=== PATIENT | male | born 1985 | race Caucasian/White ===

== ENCOUNTER 2023-02-07 18:37 | Observation (INO) | payer OTHER, SELFPAY ==
[2023-02-07] VITALS (13 sets, daily range): BP systolic 105–140; BP diastolic 64–98; PULSE 64–84; RESP 16–18; TEMP 36.9; O2SAT 94–100; BMI 24.4
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
[2023-02-07] MEDS: HYDROMORPHONE 1 MG INJ IV ×2 (18:43→19:57)
[2023-02-07 18:46] LABS: Add Manual Diff / Slide Review NO; Basophils Absolute Auto 100 /uL (0-100); Basophils Percent Auto 0.7 % (0-2); Eosinophils Absolute Auto 100 /uL (0-450); Eosinophils Percent Auto 1.3 % (2-4); Hematocrit 35.8 % (41-53); Hemoglobin 11.9 g/dL (13.5-17.5); Lymphocytes Absolute Auto 2800 /uL (1100-4500); Lymphocytes Percent Auto 35.3 % (25-40); Mean Corpuscular HGB Conc 33.3 % (30-36); Mean Corpuscular Hemoglobin 30.5 PG (26-34); Mean Corpuscular Volume 91.5 fL (80-100); Monocytes Absolute Auto 600 /uL (0-900); Monocytes Percent Auto 7.9 % (3-14); Neutrophils Absolute Auto 4300 /uL (1500-7000); Neutrophils Percent Auto 54.8 % (50-75); Platelet Count 218 X10^3/uL (150-400); Red Blood Cell Count 3.91 X10^6/uL (4.5-5.9); Red Cell Distribution Width 12.9 % (11.6-14.8); White Blood Cell Count 7.9 X10^3/uL (4.5-11.0)
--- NOTE | 2023-02-07 18:55 | PC.NURSE ---
in to talk w/ pt. Pt agreed to visit.
[2023-02-07 19:03] LABS: Alanine Aminotransferase 72 IU/L (<50); Albumin 4.4 g/dL (3.5-5.0); Albumin Globulin Ratio 1.3 (1.0-2.8); Alkaline Phosphatase 65 U/L (38-126); Aspartate Aminotransferase 91 IU/L (17-59); BUN Creatinine Ratio 9.3 (6-22); Bilirubin Total 0.5 mg/dL (0.2-1.3); Blood Urea Nitrogen 9 mg/dL (9-20); Calcium 8.8 mg/dL (8.4-10.2); Carbon Dioxide 20 mmol/L (22-32); Chloride 100 mmol/L (98-107); Estimated Glomerular Filt Rate > 60 mL/min (>60); Globulin 3.3 g/dL (1.7-4.1); Glucose 91 mg/dL (70-100); HEMOLYSIS < 15 (0-50); Lipase 509 U/L (23-300); Potassium 3.5 mmol/L (3.4-5.1); Sodium 132 mmol/L (137-145); Total Protein 7.7 g/dL (6.3-8.2)
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
[2023-02-07] MEDS: HYDROMORPHONE 0.5 MG INJ IV (23:01)
[2023-02-07] MEDS: DEXTROSE 5%-0.45% NS 1,000 ML 100 ML IV (23:33)
[2023-02-07] MEDS: ACETAMINOPHEN 325 MG TABLET 650 MG PO (23:55)
[2023-02-07] MEDS: HEPARIN 5,000 UNIT/ML VIAL 5000 UNIT SUBCUT (23:55)
[2023-02-07] MEDS: OXYCODONE IR 5 MG TABLET 10 MG PO (23:56)
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
[2023-02-08 00:42] VITALS: BMI 24.3
[2023-02-08] MEDS: OXYCODONE IR 5 MG TABLET 10 MG PO ×3 (03:13→10:25)
[2023-02-08 03:23] VITALS: BP 117/70; PULSE 52; RESP 16; TEMP 36.7; O2SAT 98
[2023-02-08 07:22] LABS: Add Manual Diff / Slide Review NO; Basophils Absolute Auto 0 /uL (0-100); Basophils Percent Auto 0.6 % (0-2); Eosinophils Absolute Auto 0 /uL (0-450); Eosinophils Percent Auto 0.1 % (2-4); Hemoglobin 12.3 g/dL (13.5-17.5); Lymphocytes Absolute Auto 1500 /uL (1100-4500); Mean Corpuscular HGB Conc 34.2 % (30-36); Mean Corpuscular Hemoglobin 30.9 PG (26-34); Mean Corpuscular Volume 90.5 fL (80-100); Monocytes Absolute Auto 800 /uL (0-900); Monocytes Percent Auto 11.7 % (3-14); Neutrophils Absolute Auto 4600 /uL (1500-7000); Neutrophils Percent Auto 66.6 % (50-75); Platelet Count 182 X10^3/uL (150-400); Red Blood Cell Count 3.97 X10^6/uL (4.5-5.9); Red Cell Distribution Width 12.9 % (11.6-14.8); White Blood Cell Count 6.9 X10^3/uL (4.5-11.0)
[2023-02-08 07:32] LABS: BUN Creatinine Ratio 9.8 (6-22); Blood Urea Nitrogen 8 mg/dL (9-20); Calcium 8.6 mg/dL (8.4-10.2); Carbon Dioxide 25 mmol/L (22-32); Chloride 102 mmol/L (98-107); Estimated Glomerular Filt Rate > 60 mL/min (>60); Glucose 171 mg/dL (70-100); HEMOLYSIS < 15 (0-50); Potassium 3.6 mmol/L (3.4-5.1); Sodium 134 mmol/L (137-145)
[2023-02-08 08:15] VITALS: BP 118/75; PULSE 61; RESP 10; TEMP 36; O2SAT 99
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
[2023-02-08] MEDS: methocarbamoL 500 MG TABLET 750 MG PO (09:05)
[2023-02-08] MEDS: CELECOXIB 200 MG CAPSULE PO (09:05)
[2023-02-08] MEDS: GABAPENTIN 400 MG CAPSULE PO (09:08)
[2023-02-08] MEDS: LIDOCAINE PATCH 1 EACH ADH..PATCH TOP (09:08)
[2023-02-08] MEDS: DEXTROSE 5%-0.45% NS 1,000 ML 100 ML IV (09:41)
[2023-02-08] MEDS: ACETAMINOPHEN 325 MG TABLET 650 MG PO (10:25)
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
== END 2023-02-08 13:07 | disposition home or self-care (01) ==
LOC: ED 21:47 → AC 22:58
PROVIDERS: Admitting Provider Surgery; Emergency Provider Emergency Medicine; Visit Provider Surgery
DX: S42.112A Displaced fracture of body of scapula, left shoulder, initial encounter for closed fracture (principal); V28.09XA Other motorcycle driver injured in noncollision transport accident in nontraffic accident, initial encounter
CPT/HCPCS: 71045; 71250; 72125; 72170; 73020; 73200; 80048; 80053; 83690; 85025; 96361; 96374; 96376; 97162; 97530; 99231; 99284; G0378; J1170; J1644

== ENCOUNTER 2024-07-19 09:46 | Emergency (ER) | payer OTHER, SELFPAY ==
[2024-07-19] VITALS (9 sets, daily range): BP systolic 99–150; BP diastolic 57–90; PULSE 52–77; RESP 20; TEMP 36.5; O2SAT 97–100; BMI 23.1
--- NOTE | 2024-07-19 09:53 | ED_ITS ---
HPI - Extremity Injury (Upper) General Chief Complaint: Extremity Injury, Upper Stated Complaint: Crushed his right hand Time Seen by Provider: 07/19/24 09:53 History of Present Illness HPI narrative: 39-year-old male with chronic pain syndrome, right-handed, was working today 929 and caught his right middle and thumb fingers between 2 large logs, with crush injury to those fingers and lacerations. No injury to the right thumb or index or pinky finger. Denies pain to the right hand, wrist, forearm, elbow, arm, shoulder. Denies pain or injury to the left upper extremity, and to the lower extremities. Denies any pain or injury to the head, face, neck, upper back, mid lower back, abdomen or pelvis. He has not sure of the date of his last tetanus shot. No known drug allergies. Related Data Home Medications Medication Instructions Recorded Confirmed buprenorphine 8 mg-naloxone 2 mg 10 mg sublingual 3XD 02/07/23 02/07/23 sublingual film Previous Rx's Medication Instructions Recorded acetaminophen 325 mg tablet 650 mg (2 x 325 mg) PO Q6H #60 tabs 02/08/23 celecoxib 200 mg capsule (Celebrex) 200 mg PO BID #20 caps 02/08/23 lidocaine 5 % topical patch 1 ea topical DAILY #4 ea 02/08/23 methocarbamol 500 mg tablet 750 mg (1.5 x 500 mg) PO TID PRN 02/08/23 Muscle Spasm #20 tabs oxycodone 5 mg tablet 10 mg (2 x 5 mg) PO Q3H PRN Pain, 02/08/23 Moderate (4-6) #20 tabs cephalexin 500 mg capsule 500 mg PO QID 7 days #28 caps 07/19/24 hydrocodone 5 mg-acetaminophen 325 1 tab PO Q6H PRN pain #14 tabs 07/19/24 mg tablet Allergies Allergy/AdvReac Type Severity Reaction Status Date / Time No Known Drug Allergies Allergy Verified 02/07/23 18:55 Patient History Social History household members: none Exam Narrative Exam Narrative: GENERAL: Well-developed patient, in mild distress. HEAD: Atraumatic. Normocephalic. EYES: Pupils equal round and reactive. Extraocular motions intact. No scleral icterus. No injection or drainage. ENT: Nose without bleeding, purulent drainage. Throat without erythema, tonsillar hypertrophy or exudate. Airway patent. NECK: Trachea midline. Non tender CARDIOVASCULAR: Regular rate and rhythm without murmurs, gallops, or rubs. RESPIRATORY: Clear to auscultation. Breath sounds equal bilaterally. No wheezes, rales, or rhonchi. GASTROINTESTINAL: Abdomen soft, non-tender, nondistended. EXTREMITIES: Laceration to the right middle finger horizontal superficial mid finger, can actively extend, no visible tendon or joint structures or foreign bodies, proximally 1 0.5 cm length. Lacerations to the right 4th finger longitudinal radial and lateral aspects up to the cuticle region, with subungual hematoma present, the nail does seem quite adherent and not loose and is tucked under the cuticle ridge over the cuticle at this time, radial laceration proximally 3 cm, ulnar laceration 2.5 cm. No visible foreign body or joint structures or tendon structures, he seemed to be able to fully extend and retract his finger. Had some numbness to the distal fingertip prior to digital block noted. BACK: Nontender without deformity or crepitance. No flank tenderness. NEURO: AOx3. Motor functions grossly nonfocal SKIN: No rash or erythema of visible areas Initial Vital Signs Initial Vital Signs: Vital Signs Temperature 97.7 F 07/19/24 09:54 Pulse Rate 77 07/19/24 09:54 Respiratory Rate 20 07/19/24 09:54 Blood Pressure 150/90 H 07/19/24 09:54 Pulse Oximetry 100 07/19/24 09:54 Oxygen Delivery Method Room Air 07/19/24 09:54 Procedures Laceration Repair Laceration 1: Time of procedure: 12:01 Site: hand (Right 4th finger) Side (If applicable): right Size (cm): 3 Description: linear Depth: simple, single layer Local Anesthetic: bupivacaine 0.5% (Digital block without epi) Amount of anesthesia used (mL): 4 Skin layer closed with: nylon Skin layer suture size: 4-0 Number of sutures: 8 Technique: simple, interrupted Laceration 2: Time of procedure: 12:02 Site: other (Right 4th ring finger) Side (If applicable): right Size (cm): 2.5 Description: linear Depth: simple, single layer Local Anesthetic: bupivacaine 0.5% (Digital block tolerated well, total 4 cc) Skin layer closed with: nylon Skin layer suture size: 4-0 Number of sutures: 6 Technique: simple, interrupted Laceration 3: Time of procedure: 12:04 Site: hand (Right 3rd finger volar aspect, no visible tendon structures, good flexion-extension) Side (If applicable): right Size (cm): 1.5 Description: linear Depth: simple, single layer Local Anesthetic: bupivacaine 0.5% (Digital block with bupivacaine total 4 cc) Amount of anesthesia used (mL): 4 Skin layer suture size: 4-0 Number of sutures: 2 Technique: simple, interrupted Misc Procedure Name of Procedure: Trephination right 4th nailbed, after digital block, single pass with electrocautery, tolerated well Side (if applicable): right Time out performed: No Complications: none Course Orders Ordered: Discontinued Medications Hydrocodone Bitart/Acetaminophen (Hydrocodone/Acet 5/325 Tablet) 1 tab PO NOW ONE Stop: 07/19/24 11:48 Last Admin: 07/19/24 12:28 Dose: 1 tab Documented By: KIM Bacitracin (Bacitracin Oint 0.9 Gm Pckt) 3 applic TOP NOW ONE Stop: 07/19/24 11:43 Last Admin: 07/19/24 12:28 Dose: 3 applic Documented By: KIM Bupivacaine HCl (Bupivacaine 0.5% (Pf) 10 Ml Vial) 5 ml SUBCUT NOW ONE Stop: 07/19/24 10:14 Last Admin: 07/19/24 10:20 Dose: 5 ml Documented By: SASHA Diphtheria/Tetanus/Acell Pertussis (Tet,Diph,Pertuss(Acell),Vac/Pf 0.5 Ml Syringe) 0.5 ml IM .ONCE ONE Stop: 07/19/24 11:48 Last Admin: 07/19/24 12:28 Dose: 0.5 ml Documented By: KIM Hydromorphone HCl (Hydromorphone 1 Mg Inj) 1 mg IV NOW ONE Stop: 07/19/24 10:06 Last Admin: 07/19/24 10:10 Dose: 1 mg Documented By: KIM Ceftriaxone Sodium 1,000 mg/ (Sodium Chloride) 100 mls @ 200 mls/hr IV NOW ONE Stop: 07/19/24 10:06 Last Infusion: 07/19/24 10:53 Dose: Infused Documented By: Admin: 07/19/24 10:10 Dose: 200 mls/hr Documented By: KIM Ondansetron HCl (Ondansetron 4 Mg/2 Ml Inj) 4 mg IV NOW ONE Stop: 07/19/24 10:06 Last Admin: 07/19/24 10:10 Dose: 4 mg Documented By: KIM Vital Signs Vital signs: Vital Signs - 8 hr 07/19/24 11:30 07/19/24 11:30 07/19/24 12:00 Pulse Rate 67 72 Blood Pressure 104/61 Pulse Oximetry 98 100 07/19/24 12:30 07/19/24 12:30 Pulse Rate 71 Blood Pressure 131/74 Pulse Oximetry 99 MDM - Extremity Injury (Upper) Imaging Data Extremity x-ray #1: Radiologist's Impression: [address] [address] XRay Report Signed Patient: Nabil Ballard MR#: [id number] : 1985 Acct:[id number] Age/Sex: 39 / M Date of Service: 07/19/24 Loc: ED Accession Number: [id number] Procedure: XR hand RT min 3V Ordering Provider: Mauricio Ellison MD PROCEDURE: XR HAND RT MIN 3V INDICATIONS: crushed/lac between tree logs TECHNIQUE: 3 views of the hand(s) acquired. COMPARISON: None. FINDINGS: Bones: No fractures or dislocations. Carpal bones are normally aligned. No suspicious bony lesions. Soft tissues: 4th digit distal phalanx traumatic injury. Subtle calcific density near the distal nail of the 4th digit best seen on lateral projection. No suspicious soft tissue calcifications. IMPRESSION: No definite fracture. Traumatic injury to the 4th digit distal phalanx. Subtle density near the distal aspect of the 4th digit nail. Difficult to exclude small foreign body. Dictated by: Abran Mathias M.D. on 07/19/2024 at 10:55 Approved by: Abran Mathias M.D. on 07/19/2024 at 10:58 [facility] Narrative Medical decision making narrative: 39-year-old right-handed male with history of chronic pain for which he takes Suboxone, had crush injury and lacerations to his right middle and ring fingers, caught between logs while wearing gloves and he tried to withdrawal. No punctures known to the gloves. Lacerations to the 4th finger more prominent, quite mangled, also with subungual hematoma of the nail although the nail is tucked under the cuticle bridge for now, and not obviously loose. Trephination through finger 4th fingernail tolerated well after digital block. Laceration repairs of the 4th finger, 14 sutures, flap like laceration, patient informed this is quite injured, might not take, could slough off, could require surgical debridement, grafting, even potential amputation. X-ray showed no obvious fracture but maybe some retained small foreign body. It is certainly possible a small foreign body could be present, none was visible after copious irrigation after digital block anesthesia. Finger 3rd laceration small, simple repair, see separate procedure note. Fingers irrigated, photos pre and post repair, antibiotic ointment applied, Xeroform, bulky finger dressing wrap. Oral hydrocodone given. Case discussed with Orthopedic surgery Dr. Lopez, he can try to be seen in their office tomorrow, otherwise recommend wound check here tomorrow. IV ceftriaxone given in the emergency department, prescription for cephalexin antibiotic sent to his pharmacy. Prescription sent for hydrocodone sent to his pharmacy. Suboxone on his medication list, might need to be held for the next few days until this whole event is resolved. Discharged home with family. Follow up with Orthopedic surgery tomorrow. Contact Orthopedic Clinic information provided on discharge. Discharge Plan Departure Patient Disposition: Home Clinical Impression: Laceration of finger, Contusion of finger, Subungual hematoma Activity Restrictions/Additional Instructions: Crush laceration injury to the right 3rd and 4th fingers while wearing gloves, as it was trapped between 2 logs and pulled out. Lacerations predominantly to the right 4th finger, that required complex repair with total 14 sutures. This flap is at risk of not taking, it is certainly possible that the flap can degrade and become infected and might even need surgical removal, skin grafting, or even potential amputation. However the bony structures are covered at this time with tissue. On x-ray there is no obvious fracture but there was some concern about possible tiny foreign body at the tip of the 4th finger, this was not visible after extensive irrigation, it is certainly possible there could be some retained foreign body by the mechanism described. Antibiotics initiated in the emergency department, further antibiotics to take at home. Advised follow up with Orthopedic surgery in the next couple of days. Contact information provided for the office of Dr. Lopez. There was a blood collection underneath the 4th finger nailbed, which can be quite painful, after digital block there was additionally a small electrocautery hole made through the nail so that it can drain and relief pressure from h ematoma and/or any purulence/pus if it should become infected. Chronic pain, for which she had been prescribed Suboxone, unfortunately this will inhibit your hydrocodone although it probably will be important to be using the hydrocodone in the next few days, as you have a pretty significant hand/finger injury. Wound check advised tomorrow and office of Dr. Lopez. Or here in the emergency department if you can not be seen there tomorrow for wound Prescriptions: New cephalexin 500 mg capsule 500 mg PO QID 7 Days Qty: 28 0RF hydrocodone-acetaminophen 5-325 mg tablet 1 tab PO Q6H PRN (Reason: pain) Qty: 14 0RF No Action buprenorphine-naloxone 8-2 mg film 10 mg sublingual 3XD celecoxib [Celebrex] 200 mg Capsule 200 mg PO BID Qty: 20 0RF methocarbamol 500 mg Tablet 750 mg PO TID PRN (Reason: Muscle Spasm) Qty: 20 0RF acetaminophen 325 mg Tablet 650 mg PO Q6H Qty: 60 0RF lidocaine 5 % Adhesive Patch,Medicated 1 ea topical DAILY Qty: 4 0RF oxycodone 5 mg Tablet 10 mg PO Q3H PRN (Reason: Pain, Moderate (4-6)) Qty: 20 0RF Referrals: Ephraim Lopez MD [Physician] - Stand Alone Forms: Patient Portal/API/Survey
--- NOTE | 2024-07-19 09:56 | DI.RAD.S_ITS ---
PROCEDURE: XR HAND RT MIN 3V INDICATIONS: crushed/lac between tree logs TECHNIQUE: 3 views of the hand(s) acquired. COMPARISON: None. FINDINGS: Bones: No fractures or dislocations. Carpal bones are normally aligned. No suspicious bony lesions. Soft tissues: 4th digit distal phalanx traumatic injury. Subtle calcific density near the distal nail of the 4th digit best seen on lateral projection. No suspicious soft tissue calcifications. IMPRESSION: No definite fracture. Traumatic injury to the 4th digit distal phalanx. Subtle density near the distal aspect of the 4th digit nail. Difficult to exclude small foreign body. Dictated by: Abran Mathias M.D. on 07/19/2024 at 10:55 Approved by: Abran Mathias M.D. on 07/19/2024 at 10:58
[2024-07-19] MEDS: HYDROMORPHONE 1 MG INJ IV (10:10)
[2024-07-19] MEDS: cefTRIAXone 1,000 MG in SODIUM CHLORIDE 0.9% 100 ML 200 MG IV (10:10)
[2024-07-19] MEDS: ONDANSETRON 4 MG/2 ML INJ IV (10:10)
[2024-07-19] MEDS: BUPIVACAINE 0.5% (PF) 10 ML VIAL 5 ML SUBCUT (10:20)
[2024-07-19] MEDS: HYDROCODONE/ACET 5/325 TABLET 1 TAB PO (12:28)
[2024-07-19] MEDS: TET,DIPH,PERTUSS(ACELL),VAC/PF 0.5 ML SYRINGE IM (12:28)
[2024-07-19] MEDS: BACITRACIN OINT 0.9 GM PCKT 3 APPLIC TOP (12:28)
== END 2024-07-19 12:43 | disposition home or self-care (01) ==
PROVIDERS: Emergency Provider Emergency Medicine
DX: S61.314A Laceration without foreign body of right ring finger with damage to nail, initial encounter (principal); W23.0XXA Caught, crushed, jammed, or pinched between moving objects, initial encounter; Z23 Encounter for immunization
CPT/HCPCS: 10140; 12002; 64450; 73130; 90471; 96365; 96375; 99284; 90715; J0696; J1171; J2405

== ENCOUNTER 2024-07-20 09:52 | Emergency (ER) | payer OTHER, SELFPAY ==
[2024-07-20 10:09] VITALS: BP 143/97; PULSE 89; RESP 14; TEMP 36.3; O2SAT 99; BMI 23.1
--- NOTE | 2024-07-20 10:17 | ED_ITS ---
HPI - Recheck/Abnormal Lab/Rx General Chief Complaint: Recheck/Abnormal Lab/Rx Stated Complaint: returning hand injury Time Seen by Provider: 07/20/24 10:17 Source: patient Mode of arrival: Ambulatory History of Present Illness HPI narrative: 39-year-old male here for wound check right hand fingers. Yesterday patient sustained crush injury between 2 trees, lacerations to the right 4th finger more extensive and with subungual hematoma, multiple sutures to repair the left 4th finger, trephination of the nailbed, simple laceration to the adjacent right 3rd finger, no tendon disruptions obvious clinically, case was discussed with [facility] Dr. Lopez for close follow up. Patient unable to get into their orthopedic clinic today, here for wound check. Patient is taking his antibiotics as prescribed. Related Data Home Medications Medication Instructions Recorded Confirmed buprenorphine 8 mg-naloxone 2 mg 10 mg sublingual 3XD 02/07/23 02/07/23 sublingual film Previous Rx's Medication Instructions Recorded acetaminophen 325 mg tablet 650 mg (2 x 325 mg) PO Q6H #60 tabs 02/08/23 celecoxib 200 mg capsule (Celebrex) 200 mg PO BID #20 caps 02/08/23 lidocaine 5 % topical patch 1 ea topical DAILY #4 ea 02/08/23 methocarbamol 500 mg tablet 750 mg (1.5 x 500 mg) PO TID PRN 02/08/23 Muscle Spasm #20 tabs oxycodone 5 mg tablet 10 mg (2 x 5 mg) PO Q3H PRN Pain, 02/08/23 Moderate (4-6) #20 tabs cephalexin 500 mg capsule 500 mg PO QID 7 days #28 caps 07/19/24 hydrocodone 5 mg-acetaminophen 325 1 tab PO Q6H PRN pain #14 tabs 07/19/24 mg tablet Allergies Allergy/AdvReac Type Severity Reaction Status Date / Time No Known Drug Allergies Allergy Verified 07/20/24 10:09 Patient History Social History household members: none Smoking Status: Unknown if ever smoked Smoking Status: Unknown if ever smoked Exam Narrative Exam Narrative: GENERAL: Well-developed patient, in mild distress. HEAD: Atraumatic. Normocephalic. HEENT: No obvious scalp or face injuries, conjugate gaze, no nosebleed or swelling, normal range of motion neck and mandible CARDIOVASCULAR: Regular rate and rhythm without murmurs, gallops, or rubs. RESPIRATORY: Clear to auscultation. Breath sounds equal bilaterally. No wheezes, rales, or rhonchi. GASTROINTESTINAL: Abdomen soft, non-tender, nondistended. EXTREMITIES: No edema or joint tenderness. Right 4rd finger with sutures intact, repaired with 14 stitches yesterday with complex repair, and trephination to the nailbed. No sloughing or blackening, no purulence. Adjacent 3rd finger with sutures intact, also no obvious infection or necrosis changes at this time. NEURO: AOx3. Motor functions grossly nonfocal SKIN: No rash or erythema of visible areas Initial Vital Signs Initial Vital Signs: Vital Signs Temperature 97.3 F L 07/20/24 10:09 Pulse Rate 89 07/20/24 10:09 Respiratory Rate 14 07/20/24 10:09 Blood Pressure 143/97 H 07/20/24 10:09 Pulse Oximetry 99 07/20/24 10:09 Oxygen Delivery Method Room Air 07/20/24 10:09 Course Orders Ordered: Discontinued Medications Bacitracin (Bacitracin Oint 0.9 Gm Pckt) 1 applic TOP NOW ONE Stop: 07/20/24 10:38 Last Admin: 07/20/24 11:22 Dose: 1 applic Documented By: SASHA Vital Signs Vital signs: Vital Signs - 8 hr 07/20/24 10:09 Temperature 97.3 F L Pulse Rate 89 Respiratory Rate 14 Blood Pressure 143/97 H Pulse Oximetry 99 Oxygen Delivery Method Room Air MDM - Recheck/Abnormal Lab/Rx MDM Narrative Medical decision making narrative: 39-year-old male with complex finger laceration yesterday with crush injury, case presented to Orthopedic surgery Dr. Lopez yesterday, who thought patient to be discharged home with follow up in clinic today, however patient unable to get into their clinic he reports, here for wound check. Dressing removed. There is some blanching to the most affected ring finger. Permission to send photos to on-call orthopedic surgery. Case discussed with Orthopedic surgery Dr. Guthrie, photos of appearance wound today and also initial wound from yesterday on hospital phone, sent to his phone for review and further recommendations. Texture apply on hospital phone, Dr. Mina had relayed images to Dr. Lopez, plan is to follow up with him in the next week in clinic. Continue daily dressing changes at home for now. Take antibiotics as prescribed. We discussed return precautions. Discharge Plan Departure Patient Disposition: Home Clinical Impression: Visit for wound check, Laceration of finger Activity Restrictions/Additional Instructions: Complex finger laceration repair yesterday, IV antibiotics given, taking oral cephalexin antibiotic, here for wound check as you were not able to get into the office of Dr. Lopez orthopedic surgery as planned today, some blanching to the wound no necrotic edges, no significant swelling. Pictures of the wound were taken with permission, and sent by hospital phone to orthopedic surgery Dr. Mina on-call, who consulted with Dr. Lopez, plan is for you to continue dressing changes daily at home, wound check in the office of Dr. Lopez in 1 week, continue the oral antibiotics as planned. Home dressing changes for now. Return earlier to this/nearest emergency department for any change worsening sym ptoms or any concerns prior to your orthopedic surgery follow up Prescriptions: No Action buprenorphine-naloxone 8-2 mg film 10 mg sublingual 3XD celecoxib [Celebrex] 200 mg Capsule 200 mg PO BID Qty: 20 0RF methocarbamol 500 mg Tablet 750 mg PO TID PRN (Reason: Muscle Spasm) Qty: 20 0RF acetaminophen 325 mg Tablet 650 mg PO Q6H Qty: 60 0RF lidocaine 5 % Adhesive Patch,Medicated 1 ea topical DAILY Qty: 4 0RF oxycodone 5 mg Tablet 10 mg PO Q3H PRN (Reason: Pain, Moderate (4-6)) Qty: 20 0RF cephalexin 500 mg capsule 500 mg PO QID 7 Days Qty: 28 0RF hydrocodone-acetaminophen 5-325 mg tablet 1 tab PO Q6H PRN (Reason: pain) Qty: 14 0RF Referrals: Miscellaneous,Doctor, MD [Primary Care Provider] - Randal Guthrie MD [Physician] - Ephraim Lopez MD [Physician] - Stand Alone Forms: Patient Portal/API/Survey
[2024-07-20] MEDS: BACITRACIN OINT 0.9 GM PCKT 1 APPLIC TOP (11:22)
--- NOTE | 2024-07-20 11:36 | PC.NURSE ---
xeroform applied,anh and coban applied.
== END 2024-07-20 11:26 | disposition home or self-care (01) ==
PROVIDERS: Emergency Provider Emergency Medicine
DX: Z48.00 Encounter for change or removal of nonsurgical wound dressing (principal); S61.314A Laceration without foreign body of right ring finger with damage to nail, initial encounter; W23.0XXA Caught, crushed, jammed, or pinched between moving objects, initial encounter
CPT/HCPCS: 99282

== ENCOUNTER 2024-07-24 18:08 | Emergency (ER) | payer OTHER, SELFPAY ==
[2024-07-24 18:16] VITALS: BP 133/88; PULSE 99; RESP 16; TEMP 36.9; O2SAT 97; BMI 23.1
--- NOTE | 2024-07-24 19:42 | PC.NURSE ---
Patient not present in lobby when called for a room. Did not check out with registration.
== END 2024-07-24 19:42 | disposition left against medical advice (07) ==
DX: M79.631 Pain in right forearm (principal)
CPT/HCPCS: 99281

== ENCOUNTER 2024-07-25 08:53 | Emergency (ER) | payer OTHER, SELFPAY ==
[2024-07-25] VITALS (9 sets, daily range): BP systolic 102–132; BP diastolic 65–93; PULSE 60–87; RESP 16–18; TEMP 36.6–37.2; O2SAT 95–99; BMI 24.4
[2024-07-25 09:53] LABS: Add Manual Diff / Slide Review NO; Basophils Absolute Auto 200 /uL (0-100); Basophils Percent Auto 3.1 % (0-2); Eosinophils Absolute Auto 100 /uL (0-450); Eosinophils Percent Auto 1.2 % (2-4); Hemoglobin 12.8 g/dL (13.5-17.5); Lymphocytes Absolute Auto 900 /uL (1100-4500); Lymphocytes Percent Auto 16.8 % (25-40); Mean Corpuscular HGB Conc 33.7 % (30-36); Mean Corpuscular Hemoglobin 36.4 PG (26-34); Mean Corpuscular Volume 107.8 fL (80-100); Monocytes Absolute Auto 600 /uL (0-900); Monocytes Percent Auto 10.1 % (3-14); Neutrophils Absolute Auto 3800 /uL (1500-7000); Neutrophils Percent Auto 68.8 % (50-75); Platelet Count 169 X10^3/uL (150-400); Red Blood Cell Count 3.52 X10^6/uL (4.5-5.9); Red Cell Distribution Width 15.5 % (11.6-14.8); White Blood Cell Count 5.5 X10^3/uL (4.5-11.0)
[2024-07-25 10:03] LABS: Lactate (Lactic Acid) 2.5 mmol/L (0.7-2.1)
[2024-07-25 10:06] LABS: Alanine Aminotransferase 38 IU/L (<50); Albumin 4.6 g/dL (3.5-5.0); Albumin Globulin Ratio 1.5 (1.0-2.8); Alkaline Phosphatase 89 U/L (38-126); Aspartate Aminotransferase 300 IU/L (17-59); BUN Creatinine Ratio 12.5 (6-22); Bilirubin Total 0.5 mg/dL (0.2-1.3); Blood Urea Nitrogen 9 mg/dL (9-20); C-Reactive Protein Quant < 0.5 mg/dL (<1.0); Carbon Dioxide 23 mmol/L (22-32); Chloride 104 mmol/L (98-107); Estimated Glomerular Filt Rate > 60 mL/min (>60); Glucose 140 mg/dL (70-100); HEMOLYSIS < 15 (0-50); Potassium 3.7 mmol/L (3.4-5.1); Sodium 140 mmol/L (137-145); Total Protein 7.6 g/dL (6.3-8.2)
--- NOTE | 2024-07-25 10:19 | ED.UPPEXIN ---
HPI - Extremity Injury (Upper) General Chief Complaint: Extremity Injury, Upper Stated Complaint: Pain in right fingers ,is spreading to his elbow Time Seen by Provider: 07/25/24 09:19 History of Present Illness HPI narrative: Patient is a 39-year-old male who initially had crush injury to right hand on July 19 with lacerations to 3rd and 4th finger. He reports that he was chopping firewood with his dad when his finger got crushed. Initial x-ray on the does not show any fracture. He was seen for a wound recheck the following day on the . Here again today for another re-evaluation but continues to have pain. Hand and flap appears pale and white he has pain radiating up into his arm. He does suffer from chronic pain syndrome he has back stimulator in. He has only been taking Tylenol and gabapentin at home for pain. He has also been on Keflex. Orthopedic surgery was consulted on the 2nd visit. He was right-hand dominant Related Data Home Medications Medication Instructions Recorded Confirmed buprenorphine 8 mg-naloxone 2 mg 10 mg sublingual 3XD 02/07/23 02/07/23 sublingual film Previous Rx's Medication Instructions Recorded acetaminophen 325 mg tablet 650 mg (2 x 325 mg) PO Q6H #60 tabs 02/08/23 celecoxib 200 mg capsule (Celebrex) 200 mg PO BID #20 caps 02/08/23 lidocaine 5 % topical patch 1 ea topical DAILY #4 ea 02/08/23 methocarbamol 500 mg tablet 750 mg (1.5 x 500 mg) PO TID PRN 02/08/23 Muscle Spasm #20 tabs oxycodone 5 mg tablet 10 mg (2 x 5 mg) PO Q3H PRN Pain, 02/08/23 Moderate (4-6) #20 tabs cephalexin 500 mg capsule 500 mg PO QID 7 days #28 caps 07/19/24 hydrocodone 5 mg-acetaminophen 325 1 tab PO Q6H PRN pain #14 tabs 07/19/24 mg tablet hydrocodone 5 mg-acetaminophen 325 1 tab PO Q6H PRN pain #20 tabs 07/25/24 mg tablet Allergies Allergy/AdvReac Type Severity Reaction Status Date / Time No Known Drug Allergies Allergy Verified 07/24/24 18:16 Patient History Social History household members: none Smoking Status: Unknown if ever smoked Smoking Status: Unknown if ever smoked Exam Initial Vital Signs Initial Vital Signs: Vital Signs Temperature 98.4 F 07/25/24 09:11 Pulse Rate 87 07/25/24 09:11 Respiratory Rate 18 07/25/24 09:11 Blood Pressure 132/93 H 07/25/24 09:11 Pulse Oximetry 97 07/25/24 09:11 GENERAL: Well-appearing, well-nourished and in no acute distress. CARDIOVASCULAR: peripheral pulses in tact, cap refill <2 sec RESPIRATORY: No respiratory distress, speaks in full sentences without difficulty EXTREMITIES: Normal range of motion, no clubbing or edema. Neurovascularly intact NEUROLOGICAL: Cranial nerves II through XII grossly intact. Normal gait and speech. SKIN: Right hand 3rd cap refill is pain sutures intact appear to be healing and for finger pale white fingers tender to touch Course Orders Ordered: ED Orders 07/25/24 09:45 CBC Auto Diff [Complete Blood Count AUTO DIFF] Stat CMP [Comprehensive Metabolic Panel] Stat CRP [C-Reactive Protein Quant] Stat Lactate (Lactic Acid) Stat 07/25/24 10:00 Blood Culture Stat Discontinued Medications Hydrocodone Bitart/Acetaminophen (Hydrocodone/Acet 5/325 Tablet) 1 tab PO NOW ONE Stop: 07/25/24 12:32 Last Admin: 07/25/24 12:55 Dose: 1 tab Documented By: WOODY Hydromorphone HCl (Hydromorphone 1 Mg Inj) 1 mg IV NOW ONE Stop: 07/25/24 10:26 Last Admin: 07/25/24 10:30 Dose: 1 mg Documented By: WOODY Hydromorphone HCl (Hydromorphone 1 Mg Inj) 1 mg IV NOW ONE Stop: 07/25/24 11:38 Last Admin: 07/25/24 11:43 Dose: 1 mg Documented By: WOODY Cefazolin Sodium 1 gm/ Sodium (Chloride) 100 mls @ 200 mls/hr IV NOW ONE Stop: 07/25/24 13:42 Last Infusion: 07/25/24 14:04 Dose: Infused Documented By: Admin: 07/25/24 13:27 Dose: 200 mls/hr Documented By: WOODY Ketorolac Tromethamine (Ketorolac 30 Mg/Ml Vial) 15 mg IV NOW ONE Stop: 07/25/24 12:32 Last Admin: 07/25/24 12:56 Dose: 15 mg Documented By: WOODY Vital Signs Vital signs: Vital Signs - 8 hr 07/25/24 10:34 07/25/24 11:00 07/25/24 11:30 Temperature Pulse Rate 87 61 76 Respiratory Rate Blood Pressure Pulse Oximetry 98 97 98 Oxygen Delivery Method 07/25/24 11:47 07/25/24 11:47 07/25/24 12:00 Temperature Pulse Rate 79 Respiratory Rate Blood Pressure 130/81 113/76 Pulse Oximetry 99 Oxygen Delivery Method 07/25/24 12:00 07/25/24 12:30 07/25/24 12:30 Temperature Pulse Rate 60 Respiratory Rate Blood Pressure 102/78 102/78 Pulse Oximetry 95 Oxygen Delivery Method 07/25/24 12:30 07/25/24 14:05 Temperature 99 F Pulse Rate 72 70 Respiratory Rate 16 Blood Pressure 112/65 Pulse Oximetry 97 99 Oxygen Delivery Method Room Air MDM - Extremity Injury (Upper) Lab Data 07/25/24 09:45 07/25/24 09:45 Labs: Lab Results 07/25/24 07/25/24 Range/Units 09:45 11:33 WBC 5.5 (4.5-11.0) X10^3/uL RBC 3.52 L (4.5-5.9) X10^6/uL Hgb 12.8 L (13.5-17.5) g/dL Hct 38.0 L (41-53) % MCV 107.8 H (80-100) fL MCH 36.4 H (26-34) PG MCHC 33.7 (30-36) % RDW 15.5 H (11.6-14.8) % Plt Count 169 (150-400) X10^3/uL Neut % (Auto) 68.8 (50-75) % Lymph % (Auto) 16.8 L (25-40) % Roosevelt % (Auto) 10.1 (3-14) % Eos % (Auto) 1.2 L (2-4) % Baso % (Auto) 3.1 H (0-2) % Neut # (Auto) 3800 (4242-6523) /uL Lymph # (Auto) 900 L (6508-0203) /uL Roosevelt # (Auto) 600 (0-900) /uL Eos # (Auto) 100 (0-450) /uL Baso # (Auto) 200 H (0-100) /uL Sodium 140 (137-145) mmol/L Potassium 3.7 (3.4-5.1) mmol/L Chloride 104 (98-107) mmol/L Carbon Dioxide 23 (22-32) mmol/L BUN 9 (9-20) mg/dL Creatinine 0.72 (0.66-1.25) mg/dL Estimated GFR > 60 (>60) mL/min BUN/Creatinine Ratio 12.5 (6-22) Glucose 140 H (70-100) mg/dL Lactate 2.5 H 2.1 (0.7-2.1) mmol/L Calcium 9.0 (8.4-10.2) mg/dL Total Bilirubin 0.5 (0.2-1.3) mg/dL AST 300 H (17-59) IU/L ALT 38 (<50) IU/L Alkaline Phosphatase 89 (38-126) U/L C-Reactive Protein < 0.5 (<1.0) mg/dL Total Protein 7.6 (6.3-8.2) g/dL Albumin 4.6 (3.5-5.0) g/dL Globulin 3.0 (1.7-4.1) g/dL Albumin/Globulin Ratio 1.5 (1.0-2.8) MDM Narrative Medical decision making narrative: 39-year-old male right-hand dominant presents today with increasing pain. Finger appears pale extensive soft tissue damage. He has no erythema or streaking it is very pale. The 4th finger does not moss picker a pulse oximeter however the 3rd finger does moss picker in his 99 with a good waveform. Dr. Guthrie on-call orthopedic has looked at the hand unable to see hand surgery locally recommends consulting [facility]. Patient may need a cross finger flap 1330 Dr. Aden on-call ortho at [facility] has reviewed pictures where local ortho thinks cross-finger flap maybe indicated. States for now patient just needs aggressive wound care either locally or can follow up in [place]. Recommend Xeroform bacitracin change dressings daily. Ultimately tissue will take time to declare. Blood work has been reviewed no leukocytosis no anemia Initial lactate 2.5 with repeat 2.1 CRP is undetectable Patient is given a dose of Ancef here in the ED multiple doses of Dilaudid Driver and Toradol. Pain is improved. I have explained to patient that he needs to be evaluated in clinic this week. [facility] is willing to have him come to [place] for follow-up in the hand clinic. I have also made referral to wound care here locally however it is unlikely he is going to get in this week with the holiday. He understands and will drive down to [place] if needed Discharge Plan Departure Patient Disposition: Home Clinical Impression: Hand crush injury Instructions: DI for Crush Injury Activity Restrictions/Additional Instructions: *You have been diagnosed with crush injury *What to do: At this time you need aggressive wound care. You need to be seen either by wound care locally here in [facility] or in [place] at [facility]. They will call to schedule appointment. Keep hand clean and dry with soap and water Apply bacitracin or Xeroform to hand daily Change dressing once a day *Continue to take medications as directed Driver 1 tablet every 4-6 hours if needed for pain Ibuprofen 600 mg every 6 hours if needed for vijv-ib-jvufrcop pain *Follow up with your primary care provider in 2-3 days or call [phone] Need to follow up with hand surgery at [facility] this week they will call Also wound care referral locally has been made *Return to ER if you should have increasing redness streaking fevers or any new, worsening or concerning symptoms CONTROLLED SUBSTANCE DISCHARGE (Narcotoic/benzodiazepine/Flexeril/Phenergan) 1. You have been prescribed narcotic medications, it does have acetaminophen/Tylenol/paracetamol in it, DO NOT TAKE MORE THAN 4,00mg in 24 hours of Tylenol. TRAMADOL DOES NOT CONTAIN TYLENOL 2. Please understand that we cannot provide further refills of narcotics, benzodiazepines or controlled substances through the ED and her pain management will need to be through your provider. 3. While on these medications you cannot drive or operate heavy machinery. 4. You cannot sign legal documents or perform any duties such as this. 5. As long as you're taking opiate pain medications he should also be taking a stool softener such as Colace, Dulcolax, MiraLAX or prune juice, to help avoid constipation. Prescriptions: New hydrocodone-acetaminophen 5-325 mg tablet 1 tab PO Q6H PRN (Reason: pain) Qty: 20 0RF No Action buprenorphine-naloxone 8-2 mg film 10 mg sublingual 3XD celecoxib [Celebrex] 200 mg Capsule 200 mg PO BID Qty: 20 0RF methocarbamol 500 mg Tablet 750 mg PO TID PRN (Reason: Muscle Spasm) Qty: 20 0RF acetaminophen 325 mg Tablet 650 mg PO Q6H Qty: 60 0RF lidocaine 5 % Adhesive Patch,Medicated 1 ea topical DAILY Qty: 4 0RF oxycodone 5 mg Tablet 10 mg PO Q3H PRN (Reason: Pain, Moderate (4-6)) Qty: 20 0RF cephalexin 500 mg capsule 500 mg PO QID 7 Days Qty: 28 0RF hydrocodone-acetaminophen 5-325 mg tablet 1 tab PO Q6H PRN (Reason: pain) Qty: 14 0RF Referrals: Miscellaneous,Doctor, MD [Primary Care Provider] - Stand Alone Forms: Patient Portal/API/Survey
[2024-07-25] MEDS: HYDROMORPHONE 1 MG INJ IV ×2 (10:30→11:43)
[2024-07-25 11:26] LABS: Reflexed Lactate in 2 Hours Y
--- NOTE | 2024-07-25 11:38 | PC.NURSE ---
Pt arrives to ED with ring and middle finger in bandage. Pt states the bandage was placed last time in the ER. Pt denies taking the bandage off at home. Bandage was noted to be dry and attached to finger. Bandage removed and ring finger noted to be white and black. Pt reports pain extends up to elbow. Pt states he has been out of his regular pain medications at home. Pt states he was running a fever at home but cannot state the degree.
[2024-07-25 11:49] LABS: Lactate 2HR (Lactic Acid Rflx) 2.1 mmol/L (0.7-2.1)
[2024-07-25] MEDS: HYDROCODONE/ACET 5/325 TABLET 1 TAB PO (12:55)
[2024-07-25] MEDS: KETOROLAC 30 MG/ML VIAL 15 MG IV (12:56)
[2024-07-25] MEDS: CEFAZOLIN VIAL 1 GM in SODIUM CHLORIDE 0.9% 100 ML IV (13:27)
--- NOTE | 2024-07-25 14:07 | PC.NURSE ---
Cap refill noted on part of middle right finger. Cap refill noted on all other fingers WNL.
--- NOTE | 2024-07-25 14:07 | PC.NURSE ---
Fingers dressed per MD discretion.
== END 2024-07-25 14:08 | disposition home or self-care (01) ==
PROVIDERS: Emergency Provider Emergency Medicine
DX: S67.21XA Crushing injury of right hand, initial encounter (principal); X58.XXXA Exposure to other specified factors, initial encounter; Y93.89 Activity, other specified
CPT/HCPCS: 80053; 83605; 85025; 86140; 87040; 96365; 96375; 96376; 99284; J0690; J1171; J1885

== ENCOUNTER → 2024-07-27 11:02 | Outpatient (CLI) | payer OTHER, SELFPAY | PROVIDERS: Referring Provider Emergency Medicine; Visit Provider Surgery | DX: S67.192A Crushing injury of right middle finger, initial encounter (principal); S67.194A Crushing injury of right ring finger, initial encounter; T79.6XXA Traumatic ischemia of muscle, initial encounter; M79.644 Pain in right finger(s) | CPT/HCPCS: 99204; 99214 ==

== ENCOUNTER 2024-07-28 14:47 | Emergency (ER) | payer OTHER, SELFPAY ==
[2024-07-28 14:50] VITALS: BP 143/83; PULSE 92; RESP 18; TEMP 36.6; O2SAT 100; BMI 23.1
--- NOTE | 2024-07-28 15:37 | ED_ITS ---
HPI - Recheck/Abnormal Lab/Rx General Chief Complaint: Recheck/Abnormal Lab/Rx Stated Complaint: R Fingers Crushed Time Seen by Provider: 07/28/24 15:22 Source: patient Mode of arrival: Ambulatory History of Present Illness HPI narrative: Patient was a 39-year-old male. Sustained injuries to his right middle and index finger when it was crushed by a log. Is being seen by wound care. He was recently seen by wound care and had the dressings replaced. Was discussions about having the patient follow-up with hyperbaric but that has yet to happen. He states he does not have a follow-up with wound care as of yet because of the holiday. He was here because his pain that has been present has continued and he was out of pain medication. Related Data Home Medications Medication Instructions Recorded Confirmed buprenorphine 8 mg-naloxone 2 mg 10 mg sublingual 3XD 02/07/23 02/07/23 sublingual film Previous Rx's Medication Instructions Recorded acetaminophen 325 mg tablet 650 mg (2 x 325 mg) PO Q6H #60 tabs 02/08/23 celecoxib 200 mg capsule (Celebrex) 200 mg PO BID #20 caps 02/08/23 lidocaine 5 % topical patch 1 ea topical DAILY #4 ea 02/08/23 methocarbamol 500 mg tablet 750 mg (1.5 x 500 mg) PO TID PRN 02/08/23 Muscle Spasm #20 tabs oxycodone 5 mg tablet 10 mg (2 x 5 mg) PO Q3H PRN Pain, 02/08/23 Moderate (4-6) #20 tabs hydrocodone 5 mg-acetaminophen 325 1 tab PO Q6H PRN pain #14 tabs 07/19/24 mg tablet hydrocodone 5 mg-acetaminophen 325 1 tab PO Q6H PRN pain #20 tabs 07/25/24 mg tablet Allergies Allergy/AdvReac Type Severity Reaction Status Date / Time No Known Drug Allergies Allergy Verified 07/28/24 14:56 Review of Systems Musculoskeletal Musculoskeletal: Reports system reviewed and no additional complaints, except as documented Integumentary/Breasts Skin/Breast: Reports system reviewed and no additional complaints, except as documented Patient History Social History household members: none Smoking Status: Unknown if ever smoked Smoking Status: Unknown if ever smoked Exam Initial Vital Signs Initial Vital Signs: Vital Signs Temperature 97.8 F 07/28/24 14:50 Pulse Rate 92 H 07/28/24 14:50 Respiratory Rate 18 07/28/24 14:50 Blood Pressure 143/83 H 07/28/24 14:50 Pulse Oximetry 100 07/28/24 14:50 Oxygen Delivery Method Room Air 07/28/24 14:50 Skin Other: Patient has stitches in place and laceration some maceration of the skin of the distal aspect of the right index finger and ring finger. No active bleeding. No signs of infection. Course Orders Ordered: Discontinued Medications Hydrocodone Bitart/Acetaminophen (Hydrocodone/Acet 5/325 Tablet) 1 tab PO NOW ONE Stop: 07/28/24 15:38 Hydrocodone Bitart/Acetaminophen (Hydrocodone/Acet 5/325 Prepack) 1 bottle MISC DIRECTED ONE Stop: 07/28/24 15:38 Vital Signs Vital signs: Vital Signs - 8 hr 07/28/24 14:50 Temperature 97.8 F Pulse Rate 92 H Respiratory Rate 18 Blood Pressure 143/83 H Pulse Oximetry 100 Oxygen Delivery Method Room Air MDM - Recheck/Abnormal Lab/Rx MDM Narrative Medical decision making narrative: His dressing was replaced today. He did show me pictures of his fingers from his last dressing change in the appearance today is very similar. No signs of infection. We will refill his pain medication. Advised patient contact wound care and his primary doctor for follow-up. Discharge Plan Departure Patient Disposition: Home Clinical Impression: Hand crush injury Activity Restrictions/Additional Instructions: I do recommend that you contact your primary care doctor and also the oil program compliance specialist for a follow-up the and for more long-term pain control. Prescriptions: No Action buprenorphine-naloxone 8-2 mg film 10 mg sublingual 3XD celecoxib [Celebrex] 200 mg Capsule 200 mg PO BID Qty: 20 0RF methocarbamol 500 mg Tablet 750 mg PO TID PRN (Reason: Muscle Spasm) Qty: 20 0RF acetaminophen 325 mg Tablet 650 mg PO Q6H Qty: 60 0RF lidocaine 5 % Adhesive Patch,Medicated 1 ea topical DAILY Qty: 4 0RF oxycodone 5 mg Tablet 10 mg PO Q3H PRN (Reason: Pain, Moderate (4-6)) Qty: 20 0RF hydrocodone-acetaminophen 5-325 mg tablet 1 tab PO Q6H PRN (Reason: pain) Qty: 14 0RF hydrocodone-acetaminophen 5-325 mg tablet 1 tab PO Q6H PRN (Reason: pain) Qty: 20 0RF Referrals: Miscellaneous,Doctor, MD [Primary Care Provider] - Stand Alone Forms: Patient Portal/API/Survey
[2024-07-28] MEDS: HYDROCODONE/ACET 5/325 TABLET 1 TAB PO (15:49)
[2024-07-28] MEDS: HYDROCODONE/ACET 5/325 PREPACK 1 BOTTLE MISC (15:50)
[2024-07-28 16:32] VITALS: BP 126/98; PULSE 86; RESP 18; TEMP 37; O2SAT 98
== END 2024-07-28 16:20 | disposition home or self-care (01) ==
PROVIDERS: Emergency Provider Emergency Medicine
DX: S67.192A Crushing injury of right middle finger, initial encounter (principal); S67.194A Crushing injury of right ring finger, initial encounter; W23.0XXA Caught, crushed, jammed, or pinched between moving objects, initial encounter
CPT/HCPCS: 99283

== ENCOUNTER → 2024-08-03 15:15 | Outpatient (CLI) | payer OTHER, SELFPAY | PROVIDERS: Visit Provider Surgery | DX: S67.192A Crushing injury of right middle finger, initial encounter (principal); S67.194A Crushing injury of right ring finger, initial encounter; R60.0 Localized edema; R23.1 Pallor; M79.644 Pain in right finger(s) | CPT/HCPCS: 99213 ==

== ENCOUNTER → 2024-08-03 15:45 | Outpatient (CLI) | payer OTHER, SELFPAY ==
--- NOTE | 2024-08-03 15:46 | DI.RAD.S_ITS ---
PROCEDURE: XR CHEST 2V INDICATIONS: evaluate for HBO therapy TECHNIQUE: 2 views of the chest were acquired. COMPARISON: [facility], CR, XR CHEST 1V, 02/07/2023, 18:58. FINDINGS: Surgical changes and devices: Dorsal column stimulator Lungs and pleura: Lungs are clear. No pleural effusions or pneumothorax. Mediastinum: Mediastinal contours are normal. Heart size is normal. Bones and chest wall: No suspicious bony abnormalities. Soft tissues appear unremarkable. IMPRESSION: No acute cardiopulmonary abnormality is seen. Dictated by: Adalid Raza M.D. on 08/04/2024 at 9:13 Approved by: Adalid Raza M.D. on 08/04/2024 at 9:13
== END ==
PROVIDERS: Referring Provider Surgery; Visit Provider Surgery
DX: S67.192A Crushing injury of right middle finger, initial encounter (principal); Z01.818 Encounter for other preprocedural examination; S67.194A Crushing injury of right ring finger, initial encounter; R60.0 Localized edema; R23.1 Pallor; M79.644 Pain in right finger(s)
CPT/HCPCS: 71046; 99213

== ENCOUNTER → 2024-08-04 10:27 | Outpatient (CLI) | payer OTHER, SELFPAY | PROVIDERS: Referring Provider Emergency Medicine; Visit Provider Surgery | DX: S67.192A Crushing injury of right middle finger, initial encounter (principal); S67.194A Crushing injury of right ring finger, initial encounter | CPT/HCPCS: 99183; G0277 ==

== ENCOUNTER → 2024-08-05 09:47 | Outpatient (CLI) | payer OTHER, SELFPAY ==
--- NOTE | 2024-08-05 | OV.WND_ITS ---
PROGRESS NOTE DETAILS PATIENT NAME: NGUYEN REYNA PATIENT NUMBER: [id number] CLINICIAN: ANNBARRYMAGEN PATIENT DATE OF : 1985 PHYSICIAN / SENIOR PAINTER: NISHA MANUEL PATIENT PROCEDURES HBO HYPERBARIC TREATMENT #3 WAS COMPLETED TODAY FOR CRUSH INJURY AND SUTURING OF SEVERED LIMBS. PRE- TREATMENT VITAL SIGNS WERE: TIME VITALS TAKEN: 09:49, BLOOD PRESSURE: 117/79 MMHG, PULSE: 81 BPM, RESPIRATORY RATE: 16 BREATHS/MIN, TEMPERATURE: 97.9 ?F, PULSE OXIMETRY: 100 %. THE TREATMENT PROTOCOL PROVIDED WAS 2.0 SUMMER X 90 MINUTES W/ 100% OXYGEN AND NO AIR BREAKS. THE DIVE RATE DOWN WAS 1.0 PSI / MINUTE. THE DIVE RATE UP WAS 1.0 PSI / MINUTE. THE TOTAL TREATMENT LENGTH WAS 120 MINUTES. POST-TREATMENT VITAL SIGNS WERE: TIME VITALS TAKEN: 11:59, BLOOD PRESSURE: 135/94 MMHG, PULSE: 90 BPM, RESPIRATORY RATE: 16 BREATHS/MIN, TEMPERATURE: 97.7 ?F, PULSE OXIMETRY: 100 %. NO ADVERSE EVENTS WERE ENCOUNTERED. PHYSICIAN/SENIOR PAINTER NOTES: THE PATIENT TOLERATED TREATMENT WITHOUT DIFFICULTY. I WAS PRESENT AND IMMEDIATELY AVAILABLE THROUGHOUT THE TREATMENT. PLAN TO CONTINUE HYPERBARIC OXYGEN THERAPY. GENERAL NOTES PT ARRIVED IN STABLE CONDITION, PRE-TREATMENT CHECKLIST COMPLETED WITHOUT COMPLICATIONS. PT COMPLETED TREATMENT WITHOUT COMPLAINT. LEFT IN STABLE CONDITION. ELECTRONIC SIGNATURE(S) SIGNED BY: DATE: NISHA MANUEL MD 08/05/2024 15:29:56 (PT) ENTERED BY: NISHA MANUEL MD ON 08/05/2024 15:28:02 (PT) NGUYEN REYNA [id number] 1985
== END ==
PROVIDERS: Referring Provider Emergency Medicine; Visit Provider Surgery
DX: S67.192A Crushing injury of right middle finger, initial encounter (principal); S67.194A Crushing injury of right ring finger, initial encounter
CPT/HCPCS: 99183; G0277

== ENCOUNTER → 2024-08-06 10:55 | Outpatient (CLI) | payer OTHER, SELFPAY | LOC: WC 10:56 | PROVIDERS: Referring Provider Emergency Medicine; Visit Provider Physician Assistant | DX: S67.192A Crushing injury of right middle finger, initial encounter (principal); S67.194A Crushing injury of right ring finger, initial encounter | CPT/HCPCS: 99183; G0277 ==

== ENCOUNTER → 2024-08-09 10:58 | Outpatient (CLI) | payer OTHER, SELFPAY | LOC: WC 10:59 | PROVIDERS: Referring Provider Emergency Medicine; Visit Provider Surgery | DX: S67.192A Crushing injury of right middle finger, initial encounter (principal); S67.194A Crushing injury of right ring finger, initial encounter | CPT/HCPCS: 99183; G0277 ==

== ENCOUNTER → 2024-08-10 09:11 | Outpatient (CLI) | payer OTHER, SELFPAY | LOC: WC 09:15 | PROVIDERS: Referring Provider Emergency Medicine; Visit Provider Surgery | DX: S67.192A Crushing injury of right middle finger, initial encounter (principal); S67.194A Crushing injury of right ring finger, initial encounter | CPT/HCPCS: 99183; G0277 ==

== ENCOUNTER → 2024-08-11 10:01 | Outpatient (CLI) | payer OTHER, SELFPAY | LOC: WC 10:03 | PROVIDERS: Referring Provider Emergency Medicine; Visit Provider Surgery | DX: S67.192A Crushing injury of right middle finger, initial encounter (principal); S67.194A Crushing injury of right ring finger, initial encounter; R23.1 Pallor; R60.0 Localized edema; M79.644 Pain in right finger(s) | CPT/HCPCS: 99183; 99213; G0277 ==

== ENCOUNTER → 2024-08-12 09:29 | Outpatient (CLI) | payer OTHER, SELFPAY | PROVIDERS: Referring Provider Emergency Medicine; Visit Provider Surgery | DX: S67.192A Crushing injury of right middle finger, initial encounter (principal); S67.194A Crushing injury of right ring finger, initial encounter; L98.8 Other specified disorders of the skin and subcutaneous tissue; R23.1 Pallor; R60.0 Localized edema; M79.644 Pain in right finger(s) | CPT/HCPCS: 99183; 99213; G0277 ==

== ENCOUNTER → 2024-08-13 10:04 | Outpatient (CLI) | payer OTHER, SELFPAY | PROVIDERS: Referring Provider Emergency Medicine; Visit Provider Physician Assistant | DX: S67.192A Crushing injury of right middle finger, initial encounter (principal); S67.194A Crushing injury of right ring finger, initial encounter; L98.8 Other specified disorders of the skin and subcutaneous tissue; R23.1 Pallor; R60.0 Localized edema; M79.644 Pain in right finger(s) | CPT/HCPCS: 99183; 99212; G0277 ==

== ENCOUNTER 2024-08-15 10:25 | Emergency (ER) | payer OTHER, SELFPAY ==
[2024-08-15 10:33] VITALS: BP 109/75; PULSE 80; RESP 16; TEMP 36.6; O2SAT 100; BMI 23.1
--- NOTE | 2024-08-15 11:01 | ED_ITS ---
HPI - Recheck/Abnormal Lab/Rx <Bronwyn Diop PA-C - Last Filed: 08/15/24 15:06> General Chief Complaint: Recheck/Abnormal Lab/Rx Stated Complaint: Returning; R Hand Crush Injury Time Seen by Provider: 08/15/24 11:00 Source: patient Mode of arrival: Ambulatory History of Present Illness HPI narrative: Mr. 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 Patient was 1st seen in the emergency department on 07/19/2024 after sustaining a crush injury to the right 3rd and 4th fingers from a log. Patient had significant complex laceration of the 4th finger and laceration of the 3rd finger which were repaired in the emergency department, Orthopedics was consulted. Patient was discharged on a course of antibiotics and advised to follow up with Orthopedics. Patient has since been in the ER 3 additional times for this injury making today the 5th visit for this injury. Orthopedics has been consulted numerous times including [facility] on 07/25, patient went to the [facility] ED and saw a hand surgeon on 07/29/24 who recommended wound care at that time with the possibility for the need for surgery or amputation. Patient started seeing local wound care doctor and has had a total of 15 hyperbaric oxygen therapy treatments. Patient presents to the ED today because he ran out of prescription pain medication and is in severe pain of the right hand. He denies fevers, chills, nausea, vomiting, any other symptoms. He will be seeing wound care doctor tomorrow. Related Data Home Medications Medication Instructions Recorded Confirmed buprenorphine 8 mg-naloxone 2 mg 10 mg sublingual 3XD 02/07/23 02/07/23 sublingual film Previous Rx's Medication Instructions Recorded acetaminophen 325 mg tablet 650 mg (2 x 325 mg) PO Q6H #60 tabs 02/08/23 celecoxib 200 mg capsule (Celebrex) 200 mg PO BID #20 caps 02/08/23 lidocaine 5 % topical patch 1 ea topical DAILY #4 ea 02/08/23 methocarbamol 500 mg tablet 750 mg (1.5 x 500 mg) PO TID PRN 02/08/23 Muscle Spasm #20 tabs oxycodone 5 mg tablet 10 mg (2 x 5 mg) PO Q3H PRN Pain, 02/08/23 Moderate (4-6) #20 tabs hydrocodone 5 mg-acetaminophen 325 1 tab PO Q6H PRN pain #14 tabs 07/19/24 mg tablet hydrocodone 5 mg-acetaminophen 325 1 tab PO Q6H PRN pain #20 tabs 07/25/24 mg tablet oxycodone-acetaminophen 5 mg-325 1 tab PO Q4-6H PRN pain 5 days #20 08/15/24 mg tablet tabs Allergies Allergy/AdvReac Type Severity Reaction Status Date / Time No Known Drug Allergies Allergy Verified 08/15/24 10:36 Review of Systems <Bronwyn Diop PA-C - Last Filed: 08/15/24 15:06> Review of Systems ROS Unobtainable: All systems reviewed & are unremarkable except as noted in HPI and below Patient History <Bronwyn Diop PA-C - Last Filed: 08/15/24 15:06> Social History household members: none Smoking Status: Unknown if ever smoked Smoking Status: Unknown if ever smoked Exam <Bronwyn Diop PA-C - Last Filed: 08/15/24 15:06> Narrative Exam Narrative: GENERAL: 39 year old patient appears stated age. Well-developed patient, in mild distress 2/2 right 3rd and 4th digit wounds. HEAD: Atraumatic. Normocephalic. CARDIOVASCULAR: Regular rate and rhythm. Strong radial pulses bilaterally. RESPIRATORY: ?Nonlabored respirations. ?Speaking in clear, full sentences. EXTREMITIES: right hand 3rd and 4th mid/distal phalanges with healing chronic wounds, sutures in place. 4th digit: Black eschar on the distal tip from prior flap. On radial side of distal finger, there is small area of open wound. No purulent drainage. Dry thickened healing wound extends to PIP palmar joint line and DI P dorsal joint line. Capillary refill is present proximal to the wound only. Third finger has thickened, dry healing skin with very minimal eschar, sutures in place dorsal aspect of 3rd finger without any major wounds. No streaking erythema or increased warmth. NEURO: AOx3. ?Clear speech. ?Moves all 4 extremities appropriately except for distal R 3rd/4th digits due to wounds. Initial Vital Signs Initial Vital Signs: Vital Signs Temperature 98 F 08/15/24 10:33 Pulse Rate 80 08/15/24 10:33 Respiratory Rate 16 08/15/24 10:33 Blood Pressure 109/75 08/15/24 10:33 Pulse Oximetry 100 08/15/24 10:33 Oxygen Delivery Method Room Air 08/15/24 10:33 <Theresa Guzmán DO - Last Filed: 08/16/24 07:47> Initial Vital Signs Initial Vital Signs: Vital Signs Temperature 98 F 08/15/24 10:33 Pulse Rate 80 08/15/24 10:33 Respiratory Rate 16 08/15/24 10:33 Blood Pressure 109/75 08/15/24 10:33 Pulse Oximetry 100 08/15/24 10:33 Oxygen Delivery Method Room Air 08/15/24 10:33 Course <Bronwyn Diop PA-C - Last Filed: 08/15/24 15:06> Orders Ordered: Discontinued Medications Ibuprofen (Ibuprofen 400 Mg Tablet) 600 mg PO NOW ONE Stop: 08/15/24 11:47 Last Admin: 08/15/24 12:00 Dose: 600 mg Documented By: BREEZY Oxycodone/Acetaminophen (Oxycodone/Acetaminophen 5/325 Tablet) 1 tab PO NOW ONE Stop: 08/15/24 11:47 Last Admin: 08/15/24 12:00 Dose: 1 tab Documented By: BREEZY Oxycodone/Acetaminophen (Oxycodone/Acetaminophen 5/325 Tablet) 1 tab PO NOW ONE Stop: 08/15/24 13:50 Last Admin: 08/15/24 14:00 Dose: 1 tab Documented By: BREEZY Consultations Consultation #1: Talked with Valerio at transfer center. Pictures sent to transfer [place] e-mail with the patient's consent. They request pulse ox reading on all 5 digits. Time: 12:16 Vital Signs Vital signs: Vital Signs - 8 hr 08/15/24 10:33 08/15/24 14:29 Temperature 98 F Pulse Rate 80 91 H Respiratory Rate 16 14 Blood Pressure 109/75 123/83 Pulse Oximetry 100 99 Oxygen Delivery Method Room Air Room Air <Theresa Guzmán DO - Last Filed: 08/16/24 07:47> Orders Ordered: Discontinued Medications Ibuprofen (Ibuprofen 400 Mg Tablet) 600 mg PO NOW ONE Stop: 08/15/24 11:47 Last Admin: 08/15/24 12:00 Dose: 600 mg Documented By: BREEZY Oxycodone/Acetaminophen (Oxycodone/Acetaminophen 5/325 Tablet) 1 tab PO NOW ONE Stop: 08/15/24 11:47 Last Admin: 08/15/24 12:00 Dose: 1 tab Documented By: BREEZY Oxycodone/Acetaminophen (Oxycodone/Acetaminophen 5/325 Tablet) 1 tab PO NOW ONE Stop: 08/15/24 13:50 Last Admin: 08/15/24 14:00 Dose: 1 tab Documented By: BREEZY Vital Signs Vital signs: Vital Signs - 8 hr 08/15/24 10:33 08/15/24 14:29 Temperature 98 F Pulse Rate 80 91 H Respiratory Rate 16 14 Blood Pressure 109/75 123/83 Pulse Oximetry 100 99 Oxygen Delivery Method Room Air Room Air MDM - Recheck/Abnormal Lab/Rx <Bronwyn Diop PA-C - Last Filed: 08/15/24 15:06> Medical Records Attestation: I reviewed the patient's medical records. Lab Data 08/15/24 13:00 08/15/24 13:00 Labs: Lab Results 08/15/24 Range/Units 13:00 WBC 4.7 (4.5-11.0) X10^3/uL RBC 3.90 L (4.5-5.9) X10^6/uL Hgb 14.1 (13.5-17.5) g/dL Hct 41.8 (41-53) % MCV 107.2 H (80-100) fL MCH 36.2 H (26-34) PG MCHC 33.8 (30-36) % RDW 14.0 (11.6-14.8) % Plt Count 242 (150-400) X10^3/uL Neut % (Auto) 63.2 (50-75) % Lymph % (Auto) 29.2 (25-40) % [place] % (Auto) 7.0 (3-14) % Eos % (Auto) 0.1 L (2-4) % Baso % (Auto) 0.5 (0-2) % Neut # (Auto) 3000 (1660-7477) /uL Lymph # (Auto) 1400 (9269-2470) /uL [place] # (Auto) 300 (0-900) /uL Eos # (Auto) 0 (0-450) /uL Baso # (Auto) 0 (0-100) /uL ESR 5 (0-15) MM/HR Sodium 140 (137-145) mmol/L Potassium 4.9 (3.4-5.1) mmol/L Chloride 102 (98-107) mmol/L Carbon Dioxide 25 (22-32) mmol/L BUN 5 L (9-20) mg/dL Creatinine 0.81 (0.66-1.25) mg/dL Estimated GFR > 60 (>60) mL/min BUN/Creatinine Ratio 6.2 (6-22) Glucose 103 H (70-100) mg/dL Calcium 9.6 (8.4-10.2) mg/dL C-Reactive Protein < 0.5 (<1.0) mg/dL MDM Narrative Medical decision making narrative: 39-year-old R hand dominant male with a past medical history of 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 Extensive record review. This is 5th ED visit for this right hand crush injury sustained 07/19/24 07/19/24: Right hand crush injury sustained. Injuries to right 3rd and 4th fingers were repaired. X-rays showing no definite fractures. Patient given Tdap, ceftriaxone, pain control andon call Ortho Dr. Lopez consulted. Recommended outpatient ortho follow up. Prescription for Keflex sent to pharmacy in addition to hydrocodone. 07/20/24: Dressing removed. Case Re discussed with on-call Orthopedic surgery Dr. Guthrie. Antibiotics were continued, recommended outpatient follow up Orthopedic surgery. 07/25/24: Patient returned for wound recheck and pain. Patient had labs checked was given IV narcotics, cefazolin, Toradol, hydrocodone in the ED. Labs reassuring. Ortho Dr. Guthrie consulted, advised consult [facility]. Dr. Aden consulted, recommended aggressive wound care locally or in [place]. He was sent additional prescription of hydrocodone. Wound care follow up given. 07/28/24: Patient return to ED for pain. He started seeing wound care. He was given additional prescription of hydrocodone. Differential diagnosis includes but is not limited to finger ischemia, healing wounds, infection, etc. On exam the patient's vital signs are all within normal limits. Right 3rd and 4th fingers with chronic healing wounds, most significant on the distal 4th digit where there is a small area of eschar from prior flap laceration. Sutures are in place. No purulent drainage or streaking erythema. Strong radial pulse, brisk capillary refill proximal to the wounds only. Case discussed with ED attending Dr. Guzmán who evaluated the patient at bedside. Patient is primarily here today only for refill of pain medication however since he has not seen a hand surgeon since he went to [facility] [place] ED, we will consult [facility] ortho hand on-call and send pictures for recommendations. Patient consents to pictures being taken and sent. We will treat with ibuprofen and oxycodone while in the ED. 1235: Discussed case with [facility] hand surgeon Attending Dr. Cruz Mercado. He reviewed patient imaging. He provided additional history that patient was seen by orthopedic hand surgeon Dr. Juan Larson on 07/29/24 and had follow up with [facility] 08/06/24 but patient did not show. He states that based on patient imaging and the history, patient will need an amputation at some point for the distal aspect of the right 4th finger (likely PIP amp) which was the recommendation on 07/29/24. States that his significant pain is because it is ischemic pain of the fingers. States that it is the patient's choice if he would like to continue conservatively with Wound Care and Hyperbaric wound therapy however this will likely not restore perfusion to the distal phalanx and he will still need an amputation at some point. He recommend checking basic labs including WBC, CRP, ESR and if there are no concerns for infection the patient can follow up outpatient with local orthopedist or [place] if local orthopedist does not feel comfortable with amputation. If labs are abnormal we should consult our local ortho surgeon on-call and if they are not comfortable they can speak directly with jackson Dr. Mercado. Labs reveal normal WBC count 4.7, ESR normal at 5, CRP undetectable. 1400: Consulted on-call orthopedic surgeon Dr. Guthrie, discussed patient case. He is happy to admit the patient for right 4th digit PIP amputation tomorrow evening, or he recommends patient following up outpatient with Dr. Lopez (ortho on-call during initial injury 07/19/24) for further outpatient management and potential later amputation. Provided patient with all information received from all consultants. At this time he would not like to proceed with amputation or admission and would like to follow up with his wound care doctor tomorrow and Dr. Lopez outpatient. Offered to remove patient's sutures however he declines and would like them removed by wound care doctor tomorrow instead. Nonadherent dressing was applied to both 3rd and 4th digits. Five day course of oxy-apap sent to pharmacy of choice for severe pain. I did review the patient's PDMP which reveals numerous prior controlled prescriptions, most recently on 08/10/2024 which the patient has run out of. Discussed with the patient the importance of following up with the primary care doctor, orthopedic doctor, wound care doctor. He was provided with information for all of them. Encouraged use of Tylenol and ibuprofen in addition to opioids when needed. Discussed risks of opioids. Discussed signs and symptoms to return to the ED for. Patient verbalized understanding of all information is agreeable to the plan, he is stable for discharge home. <Theresa Guzmán, DO - Last Filed: 08/16/24 07:47> Lab Data Labs: Lab Results 08/15/24 Range/Units 13:00 WBC 4.7 (4.5-11.0) X10^3/uL RBC 3.90 L (4.5-5.9) X10^6/uL Hgb 14.1 (13.5-17.5) g/dL Hct 41.8 (41-53) % MCV 107.2 H (80-100) fL MCH 36.2 H (26-34) PG MCHC 33.8 (30-36) % RDW 14.0 (11.6-14.8) % Plt Count 242 (150-400) X10^3/uL Neut % (Auto) 63.2 (50-75) % Lymph % (Auto) 29.2 (25-40) % [place] % (Auto) 7.0 (3-14) % Eos % (Auto) 0.1 L (2-4) % Baso % (Auto) 0.5 (0-2) % Neut # (Auto) 3000 (4389-3814) /uL Lymph # (Auto) 1400 (4665-3431) /uL [place] # (Auto) 300 (0-900) /uL Eos # (Auto) 0 (0-450) /uL Baso # (Auto) 0 (0-100) /uL ESR 5 (0-15) MM/HR Sodium 140 (137-145) mmol/L Potassium 4.9 (3.4-5.1) mmol/L Chloride 102 (98-107) mmol/L Carbon Dioxide 25 (22-32) mmol/L BUN 5 L (9-20) mg/dL Creatinine 0.81 (0.66-1.25) mg/dL Estimated GFR > 60 (>60) mL/min BUN/Creatinine Ratio 6.2 (6-22) Glucose 103 H (70-100) mg/dL Calcium 9.6 (8.4-10.2) mg/dL C-Reactive Protein < 0.5 (<1.0) mg/dL Discharge Plan Departure Patient Disposition: Home Clinical Impression: Finger pain, right Crushing injury of hand, right Qualifiers: Encounter type: subsequent encounter Qualified Code(s): S67.21XD - Crushing injury of right hand, subsequent encounter Instructions: DI for Hand Pain Activity Restrictions/Additional Instructions: Today you were evaluated for pain of your right hand due to prior crush injury. We obtained lab work which was reassuring for no systemic infection. I consulted both the hand surgeon and our applications support specialist orthopedic surgeon. They recommend an amputation on the tip of your right 4th finger or you may also follow up with wound care and continue with conservative management that way. Regardless of your decision, is very important to call and schedule an appointment with [facility], Dr. Jude Lopez, for further management and evaluation of your crush injury and for possible future amputation. Please Call [phone] and schedule an appointment at [facility] with Dr. Jude Lopez. Please also schedule an appointment with a primary care doctor at [facility] to establish care as a new patient to that you can obtain medication refills. You have been prescribed a short course of narcotic medications. These are potentially dangerous and addictive medications that should be used carefully. While on these medications you cannot drive or operate heavy machinery. Additionally, you cannot sign legal documents or perform any duties such as this. Many people get constipated on narcotic medications so it would be advisable to discuss stool softeners with the pharmacist when you brick picker your prescription. Please understand that we cannot provide further refills of narcotics or controlled substances through the ED and your pain management will need to be through your Primary Care Provider Return to the emergency department immediately for fevers, streaking redness up the right hand or arm, pus draining from the wound, any other concerns. Please follow up with your primary care doctor within the next 2-3 days for ER follow-up. (If you do not have a PCP you can call [phone]. ?to schedule an appointment with an [facility] Primary Care Provider) IF YOU DEVELOP ANY NEW OR WORSENING SYMPTOMS, RETURN TO THE ER! Please read the attached instructions, they highlight more specific treatments and interventions for you at home. Thank you for letting me participate in your care, Bronwyn Diop PA-C Prescriptions: New oxycodone-acetaminophen 5-325 mg tablet 1 tab PO Q4-6H PRN (Reason: pain) 5 Days Qty: 20 0RF No Action buprenorphine-naloxone 8-2 mg film 10 mg sublingual 3XD celecoxib [Celebrex] 200 mg Capsule 200 mg PO BID Qty: 20 0RF methocarbamol 500 mg Tablet 750 mg PO TID PRN (Reason: Muscle Spasm) Qty: 20 0RF acetaminophen 325 mg Tablet 650 mg PO Q6H Qty: 60 0RF lidocaine 5 % Adhesive Patch,Medicated 1 ea topical DAILY Qty: 4 0RF oxycodone 5 mg Tablet 10 mg PO Q3H PRN (Reason: Pain, Moderate (4-6)) Qty: 20 0RF hydrocodone-acetaminophen 5-325 mg tablet 1 tab PO Q6H PRN (Reason: pain) Qty: 14 0RF hydrocodone-acetaminophen 5-325 mg tablet 1 tab PO Q6H PRN (Reason: pain) Qty: 20 0RF Referrals: Miscellaneous,Doctor, [Primary Care Provider] - Stand Alone Forms: Patient Portal/API/Survey ED Sign-out <Theresa Guzmán DO - Last Filed: 08/16/24 07:47> Cosign ED Attending [place] Attestation: I was available for consultation. I did see and evaluate patient myself finger actually looks significantly better than it did when I saw him in June. However there is still significant concern for ischemia still pain out of proportion does not appear infected. Discussed with ROSEANNE Diop, plan of care. Patient never did follow up with hand surgery [facility] recommended contacting [facility] and sending them pictures. Also recommended getting in touch with ortho here after speaking with hand. Patient was given pain medication
[2024-08-15] MEDS: IBUPROFEN 400 MG TABLET 600 MG PO (12:00)
[2024-08-15] MEDS: OXYCODONE/ACETAMINOPHEN 5/325 TABLET 1 TAB PO ×2 (12:00→14:00)
--- NOTE | 2024-08-15 12:45 | PC.NURSE ---
The digits on the patient's right hand was assessed for 02 sat: 1: 100% 2: 100% 3. 90% 4. 88% 5. 96%
[2024-08-15 13:10] LABS: Add Manual Diff / Slide Review NO; Basophils Absolute Auto 0 /uL (0-100); Basophils Percent Auto 0.5 % (0-2); Eosinophils Absolute Auto 0 /uL (0-450); Eosinophils Percent Auto 0.1 % (2-4); Hematocrit 41.8 % (41-53); Hemoglobin 14.1 g/dL (13.5-17.5); Lymphocytes Absolute Auto 1400 /uL (1100-4500); Lymphocytes Percent Auto 29.2 % (25-40); Mean Corpuscular HGB Conc 33.8 % (30-36); Mean Corpuscular Hemoglobin 36.2 PG (26-34); Mean Corpuscular Volume 107.2 fL (80-100); Monocytes Absolute Auto 300 /uL (0-900); Neutrophils Absolute Auto 3000 /uL (1500-7000); Neutrophils Percent Auto 63.2 % (50-75); Platelet Count 242 X10^3/uL (150-400); White Blood Cell Count 4.7 X10^3/uL (4.5-11.0)
[2024-08-15 13:23] LABS: BUN Creatinine Ratio 6.2 (6-22); Blood Urea Nitrogen 5 mg/dL (9-20); C-Reactive Protein Quant < 0.5 mg/dL (<1.0); Calcium 9.6 mg/dL (8.4-10.2); Carbon Dioxide 25 mmol/L (22-32); Chloride 102 mmol/L (98-107); Estimated Glomerular Filt Rate > 60 mL/min (>60); Glucose 103 mg/dL (70-100); HEMOLYSIS < 15 (0-50); Potassium 4.9 mmol/L (3.4-5.1); Sodium 140 mmol/L (137-145)
[2024-08-15 13:32] LABS: Erythrocyte Sedimentation Rate 5 MM/HR (0-15)
[2024-08-15 14:29] VITALS: BP 123/83; PULSE 91; RESP 14; O2SAT 99
== END 2024-08-15 14:30 | disposition home or self-care (01) ==
PROVIDERS: Emergency Provider Physician Assistant
DX: S67.21XD Crushing injury of right hand, subsequent encounter (principal); M79.644 Pain in right finger(s)
CPT/HCPCS: 36415; 80048; 85025; 85651; 86140; 99283

== ENCOUNTER → 2024-08-16 10:06 | Outpatient (CLI) | payer OTHER, SELFPAY | PROVIDERS: Referring Provider Emergency Medicine; Visit Provider Surgery | DX: S67.192A Crushing injury of right middle finger, initial encounter (principal); S67.194A Crushing injury of right ring finger, initial encounter; R23.1 Pallor; R60.0 Localized edema; M79.644 Pain in right finger(s) | CPT/HCPCS: 87070; 87075; 87077; 87147; 87186; 87205; 99183; 99213; G0277 ==

== ENCOUNTER → 2024-08-18 13:45 | Outpatient (CLI) | payer OTHER, SELFPAY | PROVIDERS: Referring Provider Emergency Medicine; Visit Provider Surgery | DX: S67.194A Crushing injury of right ring finger, initial encounter (principal); S67.192A Crushing injury of right middle finger, initial encounter; L53.8 Other specified erythematous conditions; R60.0 Localized edema | CPT/HCPCS: 11042; 87070; 87075; 87077; 87186; 87205; 99183; 99213; G0277 ==

== ENCOUNTER → 2024-08-19 14:28 | Outpatient (CLI) | payer OTHER, SELFPAY | PROVIDERS: Referring Provider Emergency Medicine; Visit Provider Surgery | DX: S67.192A Crushing injury of right middle finger, initial encounter (principal); S67.194A Crushing injury of right ring finger, initial encounter | CPT/HCPCS: 99183; 99212; G0277 ==

== ENCOUNTER 2024-08-19 17:34 | Emergency (ER) | payer OTHER, SELFPAY ==
[2024-08-19 17:38] VITALS: BP 124/89; PULSE 89; RESP 14; TEMP 36.4; O2SAT 100; BMI 23.1
== END 2024-08-19 19:53 | disposition left against medical advice (07) ==
PROVIDERS: Emergency Provider Emergency Medicine
CPT/HCPCS: 99281

== ENCOUNTER 2024-08-20 06:23 | Emergency (ER) | payer OTHER, SELFPAY ==
[2024-08-20 06:31] VITALS: BP 135/91; PULSE 94; RESP 20; TEMP 36.7; O2SAT 98; BMI 22.4
[2024-08-20 06:53] VITALS: PULSE 74; O2SAT 95
--- NOTE | 2024-08-20 07:29 | ED.RECABL ---
HPI - Recheck/Abnormal Lab/Rx General Chief Complaint: Recheck/Abnormal Lab/Rx Stated Complaint: hand injury rt Time Seen by Provider: 08/20/24 06:58 Source: patient Mode of arrival: Ambulatory History of Present Illness HPI narrative: Patient is a 39-year-old male who is well known to myself in this facility at this time. He initially had a crush injury to his right 3rd and 4th finger on July 19. He has been seen in the ED multiple times. He ultimately has started hyperbaric chamber treatment. He was on it twice a day and did have significant improvement he is now continuing hyperbaric chamber treatment once daily. They change the dressing daily. He was seen and evaluated here on the for ongoing pain. At that time [facility] was consulted who did recommend amputation. Local orthopedic was scheduled here who agreed. Patient is having a difficult time getting into local ortho. He continues to have significant pain likely due to necrosis. He is now out of pain medication. He does not have a PCP wound care can not prescribe him pain medications he has yet to see ortho. Related Data Home Medications Medication Instructions Recorded Confirmed buprenorphine 8 mg-naloxone 2 mg 10 mg sublingual 3XD 02/07/23 02/07/23 sublingual film Previous Rx's Medication Instructions Recorded acetaminophen 325 mg tablet 650 mg (2 x 325 mg) PO Q6H #60 tabs 02/08/23 celecoxib 200 mg capsule (Celebrex) 200 mg PO BID #20 caps 02/08/23 lidocaine 5 % topical patch 1 ea topical DAILY #4 ea 02/08/23 methocarbamol 500 mg tablet 750 mg (1.5 x 500 mg) PO TID PRN 02/08/23 Muscle Spasm #20 tabs oxycodone 5 mg tablet 10 mg (2 x 5 mg) PO Q3H PRN Pain, 02/08/23 Moderate (4-6) #20 tabs hydrocodone 5 mg-acetaminophen 325 1 tab PO Q6H PRN pain #14 tabs 07/19/24 mg tablet hydrocodone 5 mg-acetaminophen 325 1 tab PO Q6H PRN pain #20 tabs 07/25/24 mg tablet oxycodone-acetaminophen 5 mg-325 1 tab PO Q6H PRN pain #20 tabs 08/20/24 mg tablet (Percocet) Allergies Allergy/AdvReac Type Severity Reaction Status Date / Time No Known Drug Allergies Allergy Verified 08/19/24 17:38 Patient History Social History household members: none Smoking Status: Unknown if ever smoked Smoking Status: Unknown if ever smoked Exam Initial Vital Signs Initial Vital Signs: Vital Signs Temperature 98.1 F 08/20/24 06:31 Pulse Rate 94 H 08/20/24 06:31 Respiratory Rate 20 08/20/24 06:31 Blood Pressure 135/91 H 08/20/24 06:31 Pulse Oximetry 98 08/20/24 06:31 Oxygen Delivery Method Room Air 08/20/24 06:31 GENERAL: 39-year-old male appears to be in significant pain CARDIOVASCULAR: peripheral pulses in tact, cap refill <2 sec RESPIRATORY: No respiratory distress, speaks in full sentences without difficulty EXTREMITIES: Normal range of motion, no clubbing or edema. Neurovascularly intact NEUROLOGICAL: Cranial nerves II through XII grossly intact. Normal gait and speech. SKIN: Warm, dry, no petechiae, no rashes or lesions. Right 3rd finger seems to be healing some sutures still in place no significant erythema still swollen 4th finger distal tip is covered in bandage I did unwrap the Kerlix and there does not seem to be significant erythema he does have quite a bit of pain with minimal palpation. Course Orders Ordered: Discontinued Medications Acetaminophen (Acetaminophen 325 Mg Tablet) 975 mg PO NOW ONE Stop: 08/20/24 07:22 Oxycodone HCl (Oxycodone Ir 5 Mg Tablet) 5 mg PO NOW ONE Stop: 08/20/24 07:22 Vital Signs Vital signs: Vital Signs - 8 hr 08/20/24 06:31 08/20/24 06:53 Temperature 98.1 F Pulse Rate 94 H 74 Respiratory Rate 20 Blood Pressure 135/91 H Pulse Oximetry 98 95 Oxygen Delivery Method Room Air MDM - Recheck/Abnormal Lab/Rx MDM Narrative Medical decision making narrative: Patient is a 39-year-old male who has had a crush injury with significant soft tissue damage been followed closely with wound care receiving hyperbaric treatment. Previously ortho and hand surgery has been called so consulted at [facility] lower local ortho has also been consulted. Dr. Lopez consulted updated on patient's situation he will check with the office but unfortunately if he has a outstanding bill not able to see him. Dr Ames at [facility] updated on patient's symptoms and plan of care. He will try to arrange and help facilitate follow-up and care for patient Office number [phone] Discharge Plan Departure Patient Disposition: Home Clinical Impression: High pressure injury of hand Activity Restrictions/Additional Instructions: *You have been diagnosed with finger pain *What to do: At this time please call [facility] [place] [facility] medicine [phone] Ames. Case should have notified the front office director. The referral from wound care should be going through. *Continue to take medications as directed Percocet 1 tablet every 4-6 hours if needed for severe pain *Follow up with your primary care provider in 2-3 days or call [phone] Please call ortho as above Please continue to follow up with the wound care daily *Return to ER if you should have increasing redness fever or any new, worsening or concerning symptoms CONTROLLED SUBSTANCE DISCHARGE (Narcotoic/benzodiazepine/Flexeril/Phenergan) 1. You have been prescribed narcotic medications, it does have acetaminophen/Tylenol/paracetamol in it, DO NOT TAKE MORE THAN 4,00mg in 24 hours of Tylenol. TRAMADOL DOES NOT CONTAIN TYLENOL 2. Please understand that we cannot provide further refills of narcotics, benzodiazepines or controlled substances through the ED and her pain management will need to be through your provider. 3. While on these medications you cannot drive or operate heavy machinery. 4. You cannot sign legal documents or perform any duties such as this. 5. As long as you're taking opiate pain medications he should also be taking a stool softener such as Colace, Dulcolax, MiraLAX or prune juice, to help avoid constipation. Prescriptions: New oxycodone-acetaminophen [Percocet] 5-325 mg tablet 1 tab PO Q6H PRN (Reason: pain) Qty: 20 0RF No Action buprenorphine-naloxone 8-2 mg film 10 mg sublingual 3XD celecoxib [Celebrex] 200 mg Capsule 200 mg PO BID Qty: 20 0RF methocarbamol 500 mg Tablet 750 mg PO TID PRN (Reason: Muscle Spasm) Qty: 20 0RF acetaminophen 325 mg Tablet 650 mg PO Q6H Qty: 60 0RF lidocaine 5 % Adhesive Patch,Medicated 1 ea topical DAILY Qty: 4 0RF oxycodone 5 mg Tablet 10 mg PO Q3H PRN (Reason: Pain, Moderate (4-6)) Qty: 20 0RF hydrocodone-acetaminophen 5-325 mg tablet 1 tab PO Q6H PRN (Reason: pain) Qty: 14 0RF hydrocodone-acetaminophen 5-325 mg tablet 1 tab PO Q6H PRN (Reason: pain) Qty: 20 0RF Referrals: Miscellaneous,Doctor, MD [Primary Care Provider] - Stand Alone Forms: Patient Portal/API/Survey
[2024-08-20] MEDS: OXYCODONE IR 5 MG TABLET PO (07:39)
[2024-08-20] MEDS: ACETAMINOPHEN 325 MG TABLET 975 MG PO (07:40)
[2024-08-20 08:33] VITALS: BP 136/93; PULSE 61; RESP 12; O2SAT 98
== END 2024-08-20 08:34 | disposition home or self-care (01) ==
PROVIDERS: Emergency Provider Emergency Medicine
DX: S67.192A Crushing injury of right middle finger, initial encounter (principal); S67.194A Crushing injury of right ring finger, initial encounter
CPT/HCPCS: 99213; 99283; G0277

== ENCOUNTER → 2024-08-20 13:01 | Outpatient (CLI) | payer OTHER, SELFPAY | PROVIDERS: Referring Provider Emergency Medicine; Visit Provider Physician Assistant | DX: S67.194A Crushing injury of right ring finger, initial encounter (principal); S67.192A Crushing injury of right middle finger, initial encounter | CPT/HCPCS: 99183; 99213; G0277 ==

== ENCOUNTER → 2024-08-23 09:38 | Outpatient (CLI) | payer OTHER, SELFPAY | LOC: WC 09:39 | PROVIDERS: Referring Provider Emergency Medicine; Visit Provider Surgery | DX: S67.192A Crushing injury of right middle finger, initial encounter (principal); S67.194A Crushing injury of right ring finger, initial encounter | CPT/HCPCS: 11042; 99183; 99213; G0277 ==

== ENCOUNTER 2024-08-25 09:54 | Day surgery (SDC) | payer OTHER, SELFPAY ==
[2024-08-25] VITALS (8 sets, daily range): BP systolic 132–148; BP diastolic 92–106; PULSE 77–115; RESP 10–16; TEMP 36.2–36.8; O2SAT 95–100; BMI 21.7
--- NOTE | 2024-08-25 10:30 | PM.PREOP ---
Pre-operative Note Interval Note History & Physical reviewed/Exam performed by Physician: Yes Changes to H&P: No H&P completed within 30 days and has changed as indicated here:: Discussion with patient about nail bed debridement and additional secondary wound healing with the additional wound care versus revision amputation. Patient requests revision amputation procedure. Risks and benefits were discussed.
[2024-08-25] MEDS: LACTATED RINGERS 1,000 ML 42 ML IV (10:41)
--- NOTE | 2024-08-25 10:47 | P.OP_ITS ---
Operative Date/Time/Diagnoses Date of procedure: 08/25/24 Time of procedure: 10:48 Pre-op diagnosis: Crushing injury right hand partial traumatic amputation Post-op diagnosis: same Procedure & Clinicians Procedure: 1. Partial amputation right ring finger CPT code 10933, right ring finger F8 2. Debridement phalanx finger middle right hand CPT code 20789 F7 Same procedure as scheduled: Yes Indications: The patient is a 39-year-old right-hand dominant male that had a crush injury to his right hand by a log proximally 1 month ago. He sustained a severe crushing injury to the ring finger and middle finger. He has been going to wound care with debridements and hyperbaric oxygen treatment for a month. He has persistent pain and slow wound healing and intense pain. His medical situation is complicated further by history of chronic regional pain syndrome. He also has a spinal cord stimulator. He had a crush injury to the right ring finger and loss of the nail loss of the dorsal and radial tissue from the level of the D IP joint distal. Does have ulnar tissue. He also had lacerations and crush injury to the middle finger. I had an in-depth discussion with the patient today about his injuries treatment options and his goals. We discussed options for length preservation with debridement and continued healing with secondary intention. Due to his nail bed loss he would likely require nail bed grafts and may have issues with the nail deformity in the future regarding the ring finger. We also discussed revision amputation options. The patient requests revision amputation of the ring finger today. We discussed the would do this just proximal to the area of tissue loss which would be essentially an amputation through the D IP joint and would result in shortening of the finger. We discussed risks of phantom pain, throbbing, wound healing problems and stiffness. Goals of treatment would be predictable wound healing and early range of motion. We discussed the importance of motion and desensitization after surgery. We also discussed debridement of the right middle finger wounds. He understands and agrees with the plan. The risks and benefits of the procedure have been discussed with the patient and given the opportunity to ask questions. The risks of surgery include but are not limited to infection, ma lunion, nonunion, persistence of pain, damage to nerves and blood vessels, posttraumatic arthritis, phantom pain, DVT, PE, cardiopulmonary complications and . The patient expressed a thorough understanding of the risks and benefits of surgery and has elected to proceed. Consent was signed in the office today. Surgeon: Ambreen Regalado Click Yes if Unassisted: Yes Anesthesia Type: General and Local Operative Notes Findings: Right ring finger crush injury with tissue loss from DI P distal nail bed avulsion full-thickness loss at the nail bed entire length. Tissue loss to level of the IP joint dorsally and radial volar. [place] amputation was made just proximal to the area of tissue loss and taken full-thickness for a D IP level amputation. Right middle finger was debrided at the level of the skin and subcutaneous tissue and sutures removed. Closure Type: primary Specimen(s): none sent Estimated Blood Loss (mL): 1 Blood products transfused: none Tourniquet time (min): 0 Procedure in detail: Patient was seen in the preoperative area the site of surgery was marked informed consent confirmed. This was the right hand middle and ring fingers. Sites were marked. The patient was brought back to the operating room by the anesthesia team positioned the supine position. The right arm was placed on a hand table. General anesthesia was administered. The right upper extremity was prepped and draped in the standard sterile fashion a formal time-out procedure was performed confirming the patient's side and site of surgery administration of appropriate preoperative antibiotic and presence of informed consent. All were in agreement. Attention was turned to the right ring and middle finger. Digital blocks were performed with local anesthetic then a gloved finger was cut and rolled down the ring finger as a tourniquet. Attention turned to the right ring finger Right ring finger partial amputation, revision amputation Findings were as above. Area of nonviable tissues to the level of the D IP joint dorsally and radially. A [place] type incision was marked just proximally to this and sharp scalpel was used for full-thickness flaps these were developed dorsally and volarly. Dissection was taken through the D IP joint and the fingertip was removed. The extensor flexor tendons were cut and divided. Next the wound was irrigated. The rongeur was used to round off and narrow the condyles of the middle phalanx. Then dissection was taken radially and ulnarly to find the neurovascular bundles which were then isolated divided cauterized and cut on tension and allowed to retract. Once this was completed the wound was again irrigated and then it was closed in layers with 4-0 Monocryl and 5 0 nylon suture. A final x-ray was obtained confirming the bony resection contouring of the middle phalanx condyles. Then attention was turned to the right middle finger debridement. Scalpel was used to debride skin and a small amount of subcutaneous tissue from the right middle finger as well as remove old sutures. Once debridement was completed no additional closure dressing was required. At the end of the procedure the tourniquet was removed from the ring finger pinked up well. A dressing was placed with Xeroform fluffs and Princess wrap. The patient was awoken from anesthesia and taken to the recovery unit in good condition there were no immediate complications from this procedure. All counts were correct. Complications: none Post-operative Condition: stable Disposition: PACU Plan for aftercare: Immediate range of motion. Keep dressing on ring finger clean dry and intact until follow up. Sutures will remain 2 weeks. Work on early range of motion flexing and extending ring finger through the PIP joint.
[2024-08-25] MEDS: CEFAZOLIN 2 GM/100 ML PREMIX 100 ML IV (10:48)
[2024-08-25] MEDS: ACETAMINOPHEN IV 1,000 MG/100 ML VIAL 400 MG IV (10:57)
[2024-08-25] MEDS: BUPIVACAINE 0.25% W/ EPI 30 ML VIAL 60 ML INJ (11:10)
--- NOTE | 2024-08-25 11:12 | SUR.OPER ---
Supine on padded OR bed, head on pillow,left arm secured on padded arm boards at <90 degrees abduction, right arm on arm table under control of surgeon, legs uncrossed, safety belt at thigh, tape over blanket over lower legs.
--- NOTE | 2024-08-25 12:03 | PM.OP.1 ---
Operative Date/Time/Diagnoses Date of procedure: 08/25/24 Time of procedure: 08:00 Pre-op diagnosis: Posttraumatic arthritis right ankle Retained orthopedic hardware Displaced trimalleolar ankle fracture right leg subsequent Contracted scar Post-op diagnosis: same Procedure & Clinicians Procedure: 1. Removal of implant and hardware right ankle from both the tibia and fibula plates and screws. CPT code 86672 right 2. Debridement skin and subcutaneous tissue 1st 20 sq cm right ankle separate site CPT code 10662 modifier 59 Same procedure as scheduled: Yes Indications: The patient was a 65-year-old male that had a right ankle fracture dislocation he had an ORIF with a another orthopedic surgeon about a year ago. He has gone on to severe posttraumatic arthritis and chronic pain. He has been indicated for total ankle arthroplasty. As part of the staged procedure he requires removal of his hardware through separate incisions this is extensive hardware removal involving the fibula the posterior tibia through a posterior lateral approach. He also has a painful adherent scar medially requests debridement and revision of. The risks and benefits of the procedure have been discussed with the patient and given the opportunity to ask questions. The risks of surgery include but are not limited to infection, malunion, nonunion, persistence of pain, damage to nerves and blood vessels, posttraumatic arthritis, DVT, PE, cardiopulmonary complications and . The patient expressed a thorough understanding of the risks and benefits of surgery and has elected to proceed. Consent was signed in the office today. Surgeon: Ambreen Regalado Click Yes if Unassisted: Yes Anesthesia Type: General and Local Operative Notes Findings: 1. Retained lateral fibular locking plate retained posterior tibia T plate. These were removed. Extensive dissection required to mobilize and remove posterior tibial plate including removal of bent screws requiring extensive time and instrumentation. 2. Separate incision for mobilization of medial adherence scar to medial malleolus excision of contracted scar subcutaneous mobilization and closure. Closure Type: primary Specimen(s): none sent Estimated Blood Loss (mL): 30 Blood products transfused: none Tourniquet time (min): 60 Procedure in detail: The patient was seen in the preoperative area the site of surgery was marked informed consent confirmed this was the right ankle. He was taken back to the operating room and positioned on the table. General anesthetic was administered. The patient was rolled up into the lateral decubitus position. A well padded axillary roll was placed. A well-padded ipsilateral thigh tourniquet was applied. The right lower extremity was then prepped and draped in the standard sterile fashion a formal time-out procedure was performed confirming the patient's side and site of surgery administration of appropriate preoperative antibiotics. All were in agreement. Attention turned to the right ankle. The posterolateral previous incision scar was opened and excised with the widened part proximally. This did have to be extended proximally for proper tissue mobilization. An extensive scarred bed was encountered. Careful dissection to expose the peroneal tendons and then dissect anterior to them to the posterior fibula and lateral fibula was completed to expose the lateral fibula plate and screws. These were removed using the appropriate screwdrivers and included 3.5 and 2.7 screws from the [employer] set. The plate was then removed and the rongeur used to remove the bony prominences. There were then separate 2 screws in the fibula outside of the plate that had to be identified and removed as well. Once these were completed attention was turned to the distal tibia careful dissection was taken posterior to the peroneal tendons and the interval between the peroneal tendons and then the FHL medially and the Achilles posteriorly to expose the posterior tibia. Again there was extensive scarring in his bed and did take meticulous additional dissection then what a mentasta wound bed would require. The posterior tibia was then exposed exposing the T plate and screws. The shaft T plate screws were removed. Distally the medial and lateral distal screws were removed. The central screw was bent and stripped and exceedingly difficult to remove requiring vice records associate in the rongeur to turned it a quarter turn at a time to remove. This was eventually completely removed then the plate was removed. C-arm was brought in confirming all hardware removal from the tibia and from the fibula. The posttraumatic arthritis was evidence on the x-ray. The wounds were irrigated and were closed with 2-0 PDS 2-0 Vicryl 4-0 Monocryl and 3-0 nylon suture. Local anesthetic was administered for postoperative pain control. Attention was then turned medially and a separate incision was made along the medial contracted scar scar edges were excised in the elliptical fashion. The [place] elevator and blue handle elevator were used to mobilize the subcutaneous tissue and skin off of the medial malleolus both anteriorly and posteriorly. Once this was completed the area was irrigated and was closed with 4-0 Monocryl and 3-0 nylon suture. Additional local anesthetic was infiltrated for postoperative pain control. Once this was completed the tourniquet was released prior to final closure. Hemostasis was achieved. Dressings were placed with Xeroform gauze Webril and an Edgar wrap. The patient was awoken from anesthesia and taken to the recovery unit in good condition there were no immediate complications from this procedure. Counts were correct. Complications: none Post-operative Condition: stable Disposition: PACU Plan for aftercare: Touchdown or partial weight-bearing in the boot. May remove the boot if needed. Keep dressing clean dry and intact until follow up. Once his wounds are healed appropriately we will work on progressing towards his stage total ankle replacement.
[2024-08-25] MEDS: OXYCODONE IR 5 MG TABLET PO ×2 (12:27→13:04)
[2024-08-25] MEDS: HYDROMORPHONE 1 MG INJ IV (12:31)
--- NOTE | 2024-08-25 13:09 | SUR.PHASEII ---
Verified verbal order for Toradol for pain from Veronica ANDRADE.
[2024-08-25] MEDS: hydrOXYzine 50 MG/ML INJ 25 MG IM (13:21)
[2024-08-25] MEDS: KETOROLAC 30 MG/ML VIAL IV (13:21)
== END 2024-08-25 13:33 | disposition home or self-care (01) ==
PROVIDERS: Referring Provider Orthopaedic Surgery Foot and Ankle Surgery; Visit Provider Orthopaedic Surgery Foot and Ankle Surgery
PROC: (CPT 26951; principal; 2024-08-25 12:15)
DX: S67.21XA Crushing injury of right hand, initial encounter (principal); S68.124A Partial traumatic metacarpophalangeal amputation of right ring finger, initial encounter; G89.4 Chronic pain syndrome; W23.0XXA Caught, crushed, jammed, or pinched between moving objects, initial encounter; Z96.82 Presence of neurostimulator
CPT/HCPCS: 26951; 11042; J0134; J0330; J0690; J1171; J1885; J2250; J2405; J2704; J3010; J3410

== ENCOUNTER → 2024-09-01 09:17 | Outpatient (CLI) | payer OTHER, SELFPAY | PROVIDERS: Referring Provider Emergency Medicine; Visit Provider Surgery | DX: S67.192A Crushing injury of right middle finger, initial encounter (principal); S67.194A Crushing injury of right ring finger, initial encounter | CPT/HCPCS: 99183; G0277 ==

== ENCOUNTER → 2024-09-02 09:03 | Outpatient (CLI) | payer OTHER, SELFPAY | PROVIDERS: Referring Provider Emergency Medicine; Visit Provider Surgery | DX: S67.192D Crushing injury of right middle finger, subsequent encounter (principal); S67.194D Crushing injury of right ring finger, subsequent encounter | CPT/HCPCS: 99183; G0277 ==

== ENCOUNTER → 2024-09-07 08:59 | Outpatient (CLI) | payer OTHER, SELFPAY | PROVIDERS: Referring Provider Emergency Medicine; Visit Provider Surgery | DX: S67.192D Crushing injury of right middle finger, subsequent encounter (principal); S67.194D Crushing injury of right ring finger, subsequent encounter | CPT/HCPCS: 99183; 99212; 99213; G0277 ==

== ENCOUNTER → 2024-09-08 08:38 | Outpatient (CLI) | payer OTHER, SELFPAY | PROVIDERS: Referring Provider Emergency Medicine; Visit Provider Surgery | DX: S67.192D Crushing injury of right middle finger, subsequent encounter (principal); S67.194D Crushing injury of right ring finger, subsequent encounter | CPT/HCPCS: 99183; G0277 ==